=== PATIENT | male | born 1935 | race Asian ===

== ENCOUNTER → 2016-05-13 | Outpatient (CLI) | payer OTHER | LOC: FIMAGING 12:22 | PROVIDERS: ATTEND Physician Assistant Surgical | DX: Z09 Encounter for follow-up examination after completed treatment for conditions other than malignant neoplasm (principal); Z98.1 Arthrodesis status ==

== ENCOUNTER → 2016-06-15 | Day surgery (SDC) | payer OTHER ==
[~2016-06-15] MED LIST: ASPIRIN EC 325 MG TAB PO ONE; ATROPINE SULFATE 1 MG/10 ML SYR ONE; DIAZEPAM 5 MG TAB ONE; DIAZEPAM 5 MG TAB PO ONE; FAMOTIDINE 20 MG TAB ONE; FAMOTIDINE 20 MG TAB PO ONE; IOPAMIDOL (ISOVUE 370) 100 ML BTL IV ONE; LIDOCAINE 1% 30 ML SDV ONE; MIDAZOLAM 2 MG/2 ML VIAL ONE; NS 1,000 ML IV ONE; diphenhydrAMINE 25 MG CAP PO ONE; fentaNYL 100 MCG/2 ML INJ ONE
--- NOTE | 2016-06-15 12:01 | CPEKG ---
Heart Rate: 100 RR Interval: 600 P-R Interval: 156 QRSD Interval: 100 QT Interval: 372 QTC Interval: 480 P [facility]: 69 QRS [facility]: -24 T Wave [facility]: 195 EKG Severity - ABNORMAL ECG - EKG Impression: SINUS TACHYCARDIA EKG Impression: BORDERLINE LEFT AXIS DEVIATION EKG Impression: ABNORMAL T, CONSIDER ISCHEMIA, ANT-LAT LEADS EKG Impression: BORDERLINE PROLONGED QT INTERVAL Electronically Signed By: Jabari Verde 15-Jun-2016 14:27:26
[2016-06-15 12:30] LABS: % IMMATURE GRANULYOCYTES 0.2 % (0.0-1.1); ABSOLUTE IMMATURE GRANULOCYTES 0.01 10^3/uL (0.00-0.10); ADD DIFF? NO; ADD MORPH? NO; ADD SCAN? NO; ATYPICAL LYMPHOCYTE FLAG 10 (0-99); FRAGMENT RBC FLAG 0 (0-99); HEMATOCRIT 41.1 % (40.0-51.0); HEMOGLOBIN 13.4 g/dL (13.7-17.5); LEFT SHIFT FLG 0 (0-99); LIPEMIA HEMOLYSIS FLAG 80 (0-99); MEAN CELL HEMOGLOBIN 30.8 pg (27.9-34.1); MEAN CELL HEMOGLOBIN CONCENTR. 32.6 g/dL (32.4-36.7); MEAN CELL VOLUME 94.5 fL (81.5-99.8); PLATELET CLUMPS FLAG 10 (0-99); PLATELET COUNT 121 10^3/uL (150-400); RED BLOOD CELL COUNT 4.35 10^6/uL (4.40-6.38); RED CELL DISTRIBUTION WIDTH 15.9 % (11.5-15.2)
[2016-06-15 12:39] LABS: INR 1.11 (0.83-1.16); PROTIME(PATIENT) 14.2 SEC (12.0-15.0)
[2016-06-15 12:58] LABS: ANION GAP 12 mEq/L (8-16); CALCIUM 8.8 mg/dL (8.5-10.4); CARBON DIOXIDE 20 mEq/l (22-31); CHLORIDE 105 mEq/L (97-110); CHOLESTEROL 87 mg/dL (140-220); CHOLESTEROL/HDL RATIO 1.32 RATIO (1.00-4.97); GLOMERULAR FILTRATION RATE > 60; GLUCOSE 112 mg/dL (70-100); HIGH DENSITY LIPOPROTEIN 66 mg/dL (40-65); LDL/HDL RATIO 0.06 RATIO (1.00-3.64); LOW DENSITY LIPOPROTEIN 4 mg/dL (80-100); MAGNESIUM 1.9 mg/dL (1.6-2.3); NON-HIGH DENSITY LIPOPROTEIN 21 mg/dL (90-129); POTASSIUM 4.7 mEq/L (3.5-5.2); SODIUM 137 mEq/L (134-144); TRIGLYCERIDE 86 mg/dL (40-150); VERY LOW DENSITY LIPOPROTEINS 17 mg/dL (8-25)
--- NOTE | 2016-06-15 22:36 | CPIP ---
[f rep st] INVASIVE CARDIAC PROCEDURE DATE OF PROCEDURE: 06/15/2016 PROCEDURE: 1. Coronary angiography. 2. Right heart catheterization. INDICATION: 1. New diagnosis of cardiomyopathy with an LVEF of 20%. 2. Class IV congestive heart failure symptoms. ACCESS: Patient was prepped and draped in sterile fashion. 1% lidocaine was used to anesthetize th e right inguinal region. A 6-Samoan introducer sheath was placed selectively into the right common femoral artery via modified Seldinger technique. A 7-Samoan introducer sheath was placed selectivel y into the right common femoral vein via modified Seldinger technique. CORONARY ANGIOGRAPHY: A 6-Samoan JL4 was advanced to left main coronary artery and images obtained. The left main coronary artery bifurcated into an LAD and circumflex coronary arteries. The left m ain coronary artery appeared normal. The left anterior descending coronary artery had a mid-segment al 30% stenosis in the mid-vessel. The left anterior descending coronary artery gave rise to 1 prom inent diagonal branch. The prominent diagonal branch had sequential 50% stenosis in the proximal se gments. The circumflex coronary artery is a moderate-sized vessel. The circumflex coronary artery is nondominant. The circumflex coronary artery appeared normal. A 6-Samoan JR4 was advanced to the right coronary artery and images obtained. The right coronary artery is dominant. The right coron gino artery had a 40-50% stenosis in the ostial segment, as well as a distal 30% stenosis present. LEFT VENTRICULOGRAPHY: Left ventriculography was not performed, given patient had previous echocard iogram and nuclear stress testing demonstrating an ejection fraction of 20%. RIGHT HEART CATHETERIZATION: The right heart catheter was advanced in the right atrium and pressure obtained. The right atrial pressure was 12 mmHg. The catheter was then advanced in the right vent ricle and pressure obtained. The right ventricular pressure was 60/10 mmHg. Catheter was then adva nced in the pulmonary artery position and pressure obtained. The pulmonary artery pressure was 59/3 7 mmHg with a mean pulmonary artery pressure 47 mmHg. The catheter was then advanced in the wedge p osition and pressure obtained. The pulmonary capillary wedge pressure was 25 mmHg. The transpulmon gino gradient was 22 mmHg. Cardiac output 4.22 L/min. Cardiac index 2.38. COMPLICATIONS: None. CONCLUSIONS: 1. Csgt-km-nwsihylw coronary artery disease without flow limitation. 2. Pulmonary hypertension with a mean pulmonary artery pressure of 47 mmHg. The transpulmonary gra dient is 22, indicating a component of left, as well as a primary pulmonary component to pulmonary h ypertension. 3. Elevated pulmonary capillary wedge pressure of 25 mmHg. /[id number]/MODL
== END | disposition home or self-care (01) ==
LOC: FCATH 11:33
PROVIDERS: ATTEND Internal Medicine Cardiovascular Disease
PROC: B2111ZZ Fluoroscopy of Multiple Coronary Arteries using Low Osmolar Contrast (ICD-10-PCS; principal; 2016-06-15)
PROC: B2151ZZ Fluoroscopy of Left Heart using Low Osmolar Contrast (ICD-10-PCS; principal; 2016-06-15)
PROC: 4A023N6 Measurement of Cardiac Sampling and Pressure, Right Heart, Percutaneous Approach (ICD-10-PCS; principal; 2016-06-15)
DX: I25.10 Atherosclerotic heart disease of native coronary artery without angina pectoris (principal); I50.20 Unspecified systolic (congestive) heart failure; E11.9 Type 2 diabetes mellitus without complications; Z96.641 Presence of right artificial hip joint
CPT/HCPCS: C1760; J0461; J1644; J2250; J3010; Q9967

== ENCOUNTER 2016-07-06 15:29 | Inpatient (IN) | payer OTHER ==
[2016-07-06] MEDS ORDERED: traMADol 50 MG TAB PO PRN (16:16)
[2016-07-06] MEDS ORDERED: ONDANSETRON DISINTEGRATING 4 MG TAB PO PRN (16:16)
[2016-07-06] MEDS ORDERED: ONDANSETRON 4 MG/2 ML VIAL IVP PRN (16:16)
[2016-07-06 18:01] LABS: COLOR YELLOW; LEUKOCYTE ESTERASE,URINE NEGATIVE (NEGATIVE); NITRITE,URINE NEGATIVE (NEGATIVE)
[2016-07-06 18:10] LABS: % IMMATURE GRANULYOCYTES 0.7 % (0.0-1.1); ABSOLUTE IMMATURE GRANULOCYTES 0.04 10^3/uL (0.00-0.10); ADD DIFF? NO; ADD MORPH? NO; ADD SCAN? NO; ATYPICAL LYMPHOCYTE FLAG 10 (0-99); FRAGMENT RBC FLAG 0 (0-99); HEMATOCRIT 43.6 % (40.0-51.0); HEMOGLOBIN 13.8 g/dL (13.7-17.5); LEFT SHIFT FLG 0 (0-99); LIPEMIA HEMOLYSIS FLAG 80 (0-99); MEAN CELL HEMOGLOBIN 29.3 pg (27.9-34.1); MEAN CELL HEMOGLOBIN CONCENTR. 31.7 g/dL (32.4-36.7); MEAN CELL VOLUME 92.6 fL (81.5-99.8); MEAN PLATELET VOLUME 9.2 fL (8.7-11.7); PLATELET CLUMPS FLAG 10 (0-99); PLATELET COUNT 129 10^3/uL (150-400); RED BLOOD CELL COUNT 4.71 10^6/uL (4.40-6.38); RED CELL DISTRIBUTION WIDTH 15.1 % (11.5-15.2)
[2016-07-06 18:11] LABS: MUCUS TRACE /lpf (NONE-1+)
[2016-07-06 18:12] LABS: RBC,URINE NONE SEEN /hpf (0-3)
[2016-07-06 18:21] LABS: ALANINE AMINOTRANSFERASE 38 IU/L (21-72); ALKALINE PHOSPHATASE 63 IU/L (38-126); ANION GAP 11 mEq/L (8-16); ASPARTATE AMINOTRANSFERASE 38 IU/L (17-59); CALCIUM 10.3 mg/dL (8.5-10.4); CARBON DIOXIDE 17 mEq/l (22-31); CHLORIDE 106 mEq/L (97-110); CREATININE 1.1 mg/dL (0.7-1.3); GLOMERULAR FILTRATION RATE > 60; GLUCOSE 129 mg/dL (70-100); MAGNESIUM 1.9 mg/dL (1.6-2.3); POTASSIUM 4.3 mEq/L (3.5-5.2); SODIUM 134 mEq/L (134-144); TOTAL PROTEIN 6.5 g/dL (6.3-8.2)
[2016-07-06] MEDS: metFORMIN SR 750 MG TAB.SR PO SCH (19:42)
[2016-07-06] MEDS: TRAVOPROST Z 0.004% 2.5 ML OPHT.BTL EACHEYE SCH (19:43)
[2016-07-06] MEDS: FUROSEMIDE 100 MG in D5W 100 ML IV SCH (19:44)
[2016-07-06] MEDS ORDERED: SODIUM CL NASAL 45 ML BTL EACHNARE PRN (20:44)
[2016-07-06] MEDS ORDERED: Diclofenac Sodium [Voltaren Gel (*)] 1 APP) TP PRN (20:56)
[2016-07-06] MEDS ORDERED: QUININE SULFATE 300 MG PO SCH (21:00)
[2016-07-06] MEDS: ASCORBIC ACID 500 MG TAB PO SCH (21:34)
[2016-07-06] MEDS: CARVEDILOL 6.25 MG TAB PO SCH (21:34)
[2016-07-06] MEDS: OMEGA-3 FATTY ACIDS 1,000 MG CAP PO SCH (21:34)
[2016-07-06] MEDS: LORazepam 0.5 MG TAB PO SCH (21:35)
[2016-07-06] MEDS: HYDROCODONE/APAP 5/325 TAB PO PRN (21:35)
[2016-07-06] MEDS: NIACIN 500 MG TAB PO SCH (21:36)
[2016-07-06] MEDS: ALBUTEROL 60 PUFFS/8 GM MDI IH PRN (21:37)
[2016-07-07] MEDS: FUROSEMIDE 100 MG in D5W 100 ML IV SCH ×3 (03:46→23:48)
[2016-07-07] MEDS: HYDROCODONE/APAP 5/325 TAB PO PRN ×2 (03:50→21:12)
[2016-07-07 04:29] LABS: CALCIUM 9.6 mg/dL (8.5-10.4); CARBON DIOXIDE 20 mEq/l (22-31); CHLORIDE 105 mEq/L (97-110); CREATININE 1.2 mg/dL (0.7-1.3); GLOMERULAR FILTRATION RATE 58; GLUCOSE 94 mg/dL (70-100); SODIUM 137 mEq/L (134-144)
[2016-07-07 04:33] LABS: ANION GAP 12 mEq/L (8-16); POTASSIUM 4.5 mEq/L (3.5-5.2)
[2016-07-07] MEDS ORDERED: NON-FORMULARY NEW DRUG (Simvastatin [Zocor] 40 MG) PO SCH (09:00)
--- NOTE | 2016-07-07 09:42 | SOAPPROG ---
SOAP Progress Note Assessment/Plan: Assessment: 81 yo male admitted by cardiology, we are following along per request w/ Bonnie yesterday, pt well known to Clay Fritz w/ multiple med problems including cad , DM, htn, pud /w h/o gib, hypoxemia who was in cardiology clinic yesterday and decision made to admit him for more aggressive care of his CHF. He has unfortunately had a bad fall sustaining rib fractures (was getting mail and slipped on ice over a month ago), w/ h/o T10 and T12 fx as well from a fall prior to that months ago, who has had continuing sob and pleural effusions since his rib fractures and failed outpt treatment w/ lasix and symptomatic care. -CHF - per cardiology, getting iv diuresis, usual meds include arb. Will defer to cardiology. Hopefully he will turn around quickly and get some relief. -DM - on metformin -cad - s/p recent stress test, is on simvastatin, colestipol, niacin. -PUD/h/o GIB - cont on ppi. -pain (lumbago from vertebral fx, and rib pain from recent fractures) - gabapentin, norco, tramadol have been helping as outpt. Will make sure he has options on med list here for discomfort as needed. -hypoxia, copd - inhalers, oxygen Plan: 07/07/16 09:33 Subjective: Doing ok, hopes to get better rapidly, has company coming into town next week Objective: Vital Signs Temp Pulse Resp BP Pulse Ox 36.5 C 93 24 H 102/72 97 07/07/16 08:00 07/07/16 08:00 07/07/16 08:00 07/07/16 08:00 07/07/16 08:00 Laboratory Results 07/06/16 17:30 07/07/16 03:28 07/06/16 07/07/16 07/08/16 05:59 05:59 05:59 Intake Total 400 Output Total 960 270 Balance -560 -270 GEN: pleasant male, A&O HEENT: wearing oxygen by nasal cannula Chest: some coarse bs and decreased bs at bases CV: rrr ABd: soft nt nd Ext: L heel w/ dressing intact - wound care to see today ICD10 Worksheet Patient Problems: Problems Problem Status Onset Primary localized osteoarthritis of right hip Acute Fusion of lumbar spine Acute
[2016-07-07] MEDS: CARVEDILOL 6.25 MG TAB PO SCH ×2 (09:49→17:09)
[2016-07-07] MEDS: OMEGA-3 FATTY ACIDS 1,000 MG CAP PO SCH ×2 (09:49→21:12)
[2016-07-07] MEDS: ASPIRIN 81 MG CHEWABLE TAB PO SCH (09:49)
[2016-07-07] MEDS: ENOXAPARIN 40 MG/0.4 ML SYR SC SCH (09:49)
[2016-07-07] MEDS: ATORVASTATIN CALCIUM 20 MG TAB PO SCH (09:52)
[2016-07-07] MEDS: SPIRONOLACTONE 25 MG TAB PO SCH (09:53)
[2016-07-07] MEDS: LIDOCAINE 5% 1 EA PATCH TD SCH ×2 (09:53→21:17)
[2016-07-07] MEDS: LOSARTAN POTASSIUM 25 MG TAB PO SCH (09:53)
[2016-07-07] MEDS: ASCORBIC ACID 500 MG TAB PO SCH ×2 (09:53→21:12)
[2016-07-07] MEDS: FINASTERIDE 5 MG TAB PO SCH (09:54)
--- NOTE | 2016-07-07 12:15 | PDCARPN ---
Cardiology Progress Note Chief Complaint: Systolic CHF Assessment/Plan: Assessment: Systolic CHF---- Admitted from the office yesterday due to CHF exacerbation. At home he was SOB requiring oxygen, and he could not walk from room to room w/ out extreme SOB. He was started on a Lasix drip 100/hr in Dex. He has tolerated it well. Output balance -560. Admit BNP was 16,100 and weight 58.7 admit and 57.8 this AM. GFR on admit >60, and today 58. His abdomen is full, and legs no edema. He is on Aldactone. He denies SOB today. He has been up in the room. Telemetry show RSR with rate in 90's. Continue with low Sodium diet. His food choices have indicated he desires high sodium. Dietary reminds him he can not have foods if he calls for high sodium foods, which is frustrating him. He will benefit from dietary education on Low Sodium diet. Will plan to continue IV Lasix today and likely consider switching to oral tomorrow. NICM with EF of 20%. DM managed on Metformin. CAD--Recent stress test. On BB, ARB, Statin. No anginal symptoms. COPD, hypoxia in office, now on oxygen. Plan:Continue IV Lasix. Consider switch to oral tomorrow. Dr Dimas will round on him in AM. 07/07/16 12:18 Reviewed/Discussed With: multidisciplinary team Objective: Vital Signs (8 Hrs) Temp Pulse Resp BP Pulse Ox 07/07/16 08:00 36.5 C 93 24 H 102/72 97 Intake/Output (24 Hrs) 07/06/16 07/07/16 07/08/16 05:59 05:59 05:59 Intake Total 400 Output Total 960 270 Balance -560 -270 Intake: Oral (ml) 400 Output: Urine (ml) 960 270 Urinal 960 270 Other: Weight 57.8 kg Number of Voids Toilet 2 Urinal 1 Number of Stools Toilet 1 Result Diagrams: 07/06/16 17:30 07/07/16 03:28 - Physical Exam Constitutional: no apparent distress Cardiovascular: regular rate and rhythm, no murmurs, no rubs, no gallops Peripheral Pulses: 1+: dorsalis-pedis (R), dorsalis-pedis (L) Respiratory: no crackles, no wheezes, No expiratory wheeze Skin: warm, other (No lower ext edema. Abdomen fullness present.) Neurologic: AAOx3 Psychiatric: cooperative, interactive ICD10 Worksheet Patient Problems: Problems Problem Status Onset Fusion of lumbar spine Acute Primary localized osteoarthritis of right hip Acute
[2016-07-07] MEDS: PANTOPRAZOLE SODIUM 40 MG TAB PO SCH (14:09)
--- NOTE | 2016-07-07 15:03 | WOCRNPDOC ---
WOCRN Advanced Assessment Note - Skin Integrity Problem, Advanced Assess Bilateral Heel Dressing Type: Allevyn Life Dressing Description: Clean/Dry, Intact Exudate Amount: Scant Exudate Color: Reddish/Yellow Exudate Characteristic(s): Serosanguinous Integumentary Issue Intervention: Visualized Under Dressing Zbigniew Wound Tissue: Blanching, Erythema, Raw Zbigniew Wound Swelling: Mild Wound Bed Color: Red, Yellow Wound Bed Constitution: Smooth Tissue, Adhered Slough Site Measurement - Head-to-Toe Length X Width X Depth (cm): L heel: 0.2cmx0.5cmxslough. R heel: #1: 0.1cmx0.6cmx0.1cm. #2: 0.2cmx0.4cmx0.1cm Pulse Location & Description: +2 DP bilaterally Extremity Temperature: Warm Skin Integrity Problem Comment: Linear, abrasion-like wounds noted on posteior aspect (achilles) of patient's heels. On the left, the abrasion is small, but slough-filled. On the R, both abrasions are shallow w/ smooth tissues noted in wound bed. There is mild zbigniew-wound erythema on both heels, and patient c/o pain when site is palpated. He also reports pain at night when he is in bed. While he does have 2+ DP pulses and warm feet, there could be a mild arterial component to this pain. In addition, the abrasions are consistent in location with where the backs of his shoes come into contact with the wounds. I recommended that he stops wearing these shoes for a week or so to determine if they are contributing to the wounds. In addition, he should continue to keep both heels covered, and float them when in bed. rn first assistAMERICA Fernandez present and assisting.
[2016-07-07] MEDS: metFORMIN SR 750 MG TAB.SR PO SCH (17:09)
[2016-07-07] MEDS: ALBUTEROL 60 PUFFS/8 GM MDI IH PRN (17:12)
[2016-07-07] MEDS: LORazepam 0.5 MG TAB PO SCH (21:12)
[2016-07-07] MEDS: NIACIN 500 MG TAB PO SCH (21:13)
[2016-07-07] MEDS: TRAVOPROST Z 0.004% 2.5 ML OPHT.BTL EACHEYE SCH (21:13)
[2016-07-07] MEDS: QUININE SULFATE 300 MG PO SCH (21:21)
[2016-07-08 08:39] LABS: ANION GAP 10 mEq/L (8-16); CALCIUM 8.3 mg/dL (8.5-10.4); CARBON DIOXIDE 25 mEq/l (22-31); CHLORIDE 100 mEq/L (97-110); CREATININE 1.6 mg/dL (0.7-1.3); GLOMERULAR FILTRATION RATE 42; GLUCOSE 131 mg/dL (70-100); SODIUM 135 mEq/L (134-144)
[2016-07-08] MEDS ORDERED: VITAMIN B COMPLEX 1 EA CAP/TAB PO SCH (09:00)
--- NOTE | 2016-07-08 09:08 | SOAPPROG ---
SOAP Progress Note Assessment/Plan: Assessment: Plan: 07/08/16 09:07 COPD--add DUOnebs, prior smoker CHF as per cards, creatinine increasing weight loss, nausea--check Abd US DM--stable--not really an issue with weight loss, will d/c metformin Subjective: Patient frustrated with limitations in breathing and energy. Appetite thwarted by nausea. Two falls have resulted in multiple rib fractures and spinal compression fractures over the last 10 months. Pain improved at this point except for left lower lateral rib pain last night. Urinary output increased, but not extreme. Objective: Vital Signs Temp Pulse Resp BP Pulse Ox 36.7 C 89 18 103/64 99 07/08/16 07:45 07/08/16 07:45 07/08/16 07:45 07/08/16 07:45 07/08/16 07:45 Laboratory Results 07/06/16 17:30 07/08/16 08:11 07/07/16 07/08/16 07/09/16 05:59 05:59 05:59 Intake Total 519 950 Output Total 960 1420 400 Balance -441 -470 -400 Gen: NAD, pleasant Lungs" moderately diminished breath sounds posteriorly Heart: RRR tele sinus Abd + bs soft, moderate weight loss over past year LE's no edema Cr increasing with iv lasix ICD10 Worksheet Patient Problems: Problems Problem Status Onset Fusion of lumbar spine Acute Primary localized osteoarthritis of right hip Acute
[2016-07-08] MEDS: FUROSEMIDE 100 MG in D5W 100 ML IV SCH (10:00)
[2016-07-08] MEDS: ASCORBIC ACID 500 MG TAB PO SCH ×2 (10:11→21:39)
[2016-07-08] MEDS: ATORVASTATIN CALCIUM 20 MG TAB PO SCH (10:11)
[2016-07-08] MEDS: PANTOPRAZOLE SODIUM 40 MG TAB PO SCH (10:12)
[2016-07-08] MEDS: VITAMIN B COMPLEX 1 EA CAP/TAB PO SCH (10:12)
[2016-07-08] MEDS: OMEGA-3 FATTY ACIDS 1,000 MG CAP PO SCH ×2 (10:12→21:39)
[2016-07-08] MEDS: FINASTERIDE 5 MG TAB PO SCH (10:12)
[2016-07-08] MEDS: ASPIRIN 81 MG CHEWABLE TAB PO SCH (10:12)
[2016-07-08] MEDS: CARVEDILOL 6.25 MG TAB PO SCH ×2 (10:13→18:47)
[2016-07-08] MEDS: LOSARTAN POTASSIUM 25 MG TAB PO SCH (10:14)
[2016-07-08] MEDS: SPIRONOLACTONE 25 MG TAB PO SCH (10:14)
[2016-07-08] MEDS: ENOXAPARIN 40 MG/0.4 ML SYR SC SCH (10:15)
[2016-07-08] MEDS: IPRATROPIUM/ALBUTEROL 3 ML DEYVIAL IH SCH ×2 (11:14→17:21)
[2016-07-08] MEDS: LIDOCAINE 5% 1 EA PATCH TD SCH (12:17)
--- NOTE | 2016-07-08 12:47 | SOAPPROG ---
LALY Progress Note Assessment/Plan: Assessment: 81 y/o man with chronic non-ischemic systolic CHF with LVEF 20%, longstanding DM and moderate non-obstructive CAD by cath last month. Echo 06/12 showed LVEF 20 % with LVEDD 6.2cm suggesting some chronicity to it and mild AI/MR and trivial TR. L/R cardiac cath 06/15/16 showed moderate 40-50% CAD. RHC: RA 12, PCWP 25 and CI 2.4 l/min. He has diuresed about 20lbs over last month. Clinically I think he is euvolemic to slightly hypovolemic now. I wonder if his chronic nausea could have a component of diabetic gastroparesis. He still is in denial how sick he is and frustrated can't host family reunion without fatigue. REC: 1)stop Lasix gtt. 2)decrease Aldactone to 12.5mg PO qam with his CRI. 3)probably restart lasix 40mg PO qday in 1-3 days. 4)maybe from a CHF standpoint could go home tommoow or Wednesday. 5)if continues to decline, possibly repeat RHC with RV bx to evaluate for amyloidosis soon. 6)more CHF education and teaching done today by me. 07/08/16 12:42 Subjective: c/o fatigue, shortness of breath at rest because can't breath thru nares, and chronic nausea and no appetite. Denies CP, PND or near syncope. Ambulated in hallway 150ft without TABARES. Objective: Vital Signs Temp Pulse Resp BP Pulse Ox 36.6 C 99 20 93/62 L 98 07/08/16 11:44 07/08/16 11:44 07/08/16 11:44 07/08/16 11:44 07/08/16 11:44 Laboratory Results 07/06/16 17:30 07/08/16 08:11 07/07/16 07/08/16 07/09/16 05:59 05:59 05:59 Intake Total 519 950 120 Output Total 960 1420 600 Balance -981 -384 -871 Physical Exam - Physical Exam General Appearance: alert EENT: PERRL/EOMI Neck: non-tender Respiratory: lungs clear Cardiac/Chest: regular rate, rhythm, gallop, systolic murmur, No JVD Peripheral Pulses: 1+: femoral (R), femoral (L), dorsalis-pedis (R), dorsalis- pedis (L), 2+: carotid (R), carotid (L) Abdomen: non-tender, No guarding Skin: warm/dry Extremities: pedal edema (trace bilateral pretibial edema.) Neuro/Psych: alert ICD10 Worksheet Patient Problems: Problems Problem Status Onset Fusion of lumbar spine Acute Primary localized osteoarthritis of right hip Acute
[2016-07-08] MEDS: LORazepam 0.5 MG TAB PO SCH (21:39)
[2016-07-08] MEDS: TRAVOPROST Z 0.004% 2.5 ML OPHT.BTL EACHEYE SCH (21:40)
[2016-07-08] MEDS: QUININE SULFATE 300 MG PO SCH (21:43)
[2016-07-09] MEDS: IPRATROPIUM/ALBUTEROL 3 ML DEYVIAL IH SCH ×3 (00:51→11:51)
[2016-07-09 04:29] LABS: % IMMATURE GRANULYOCYTES 0.4 % (0.0-1.1); ABSOLUTE IMMATURE GRANULOCYTES 0.02 10^3/uL (0.00-0.10); ADD DIFF? NO; ADD MORPH? NO; ADD SCAN? NO; ATYPICAL LYMPHOCYTE FLAG 10 (0-99); FRAGMENT RBC FLAG 0 (0-99); HEMOGLOBIN 12.4 g/dL (13.7-17.5); LEFT SHIFT FLG 0 (0-99); LIPEMIA HEMOLYSIS FLAG 80 (0-99); MEAN CELL HEMOGLOBIN CONCENTR. 31.8 g/dL (32.4-36.7); MEAN CELL VOLUME 94.2 fL (81.5-99.8); MEAN PLATELET VOLUME 9.3 fL (8.7-11.7); PLATELET CLUMPS FLAG 10 (0-99); PLATELET COUNT 95 10^3/uL (150-400); RED BLOOD CELL COUNT 4.14 10^6/uL (4.40-6.38); RED CELL DISTRIBUTION WIDTH 15.1 % (11.5-15.2)
[2016-07-09 04:39] LABS: ALBUMIN 3.3 g/dL (3.5-5.0)
[2016-07-09 04:41] LABS: ALANINE AMINOTRANSFERASE 40 IU/L (21-72); ALKALINE PHOSPHATASE 48 IU/L (38-126); AMYLASE 156 IU/L (30-110); ANION GAP 5 mEq/L (8-16); ASPARTATE AMINOTRANSFERASE 26 IU/L (17-59); BILIRUBIN,TOTAL 0.7 mg/dL (0.1-1.4); CALCIUM 8.1 mg/dL (8.5-10.4); CARBON DIOXIDE 26 mEq/l (22-31); CHLORIDE 103 mEq/L (97-110); CREATININE 1.3 mg/dL (0.7-1.3); GLOMERULAR FILTRATION RATE 53; GLUCOSE 122 mg/dL (70-100); POTASSIUM 3.3 mEq/L (3.5-5.2); SODIUM 134 mEq/L (134-144); TOTAL PROTEIN 5.6 g/dL (6.3-8.2)
[2016-07-09] MEDS ORDERED: SPIRONOLACTONE 25 MG TAB PO SCH (09:00)
--- NOTE | 2016-07-09 09:14 | SOAPPROG ---
SOAP Progress Note Assessment/Plan: Assessment: Plan: 07/08/16 09:07 COPD--add DUOnebs, prior smoker CHF as per cards, creatinine increasing weight loss, nausea--check Abd US DM--stable--not really an issue with weight loss, will d/c metformin 07/09/16 09:12 CHF--continue meds, CP rehab COPD--nebs seem to have helped, Juany will be contacted through our office today nausea/wt loss--US negative, pancreatic enzymes slightly elevated, hold metformin and niacin and see if symptoms improve DM--stable, improved with weight loss TSH--mildly suppressed, follow, potential addition of methimazole in the future osteoporosis--planning on Prolia Subjective: He is processing his current challenges with some polite frustration. Shortness of breath still feels limiting. Nebs seem to have helped. He has eaten ivorian toast for breakfast the past two days with better appetite. Objective: Vital Signs Temp Pulse Resp BP Pulse Ox 36.6 C 80 16 104/65 96 07/09/16 04:00 07/09/16 05:57 07/09/16 05:57 07/09/16 04:00 07/09/16 05:57 Laboratory Results 07/09/16 03:56 07/09/16 03:56 07/08/16 07/09/16 07/10/16 05:59 05:59 05:59 Intake Total 950 640 Output Total 1420 1500 Balance -470 -860 Gen: NAD, appears brighter and moves about the room a bit quicker and with more ease Lungs: diminished BS, posterior crackles--mild Heart: RRR Abd + bs soft LE's no edema Labs TSH mildly suppressed K+ 3.3 Cr improved Lipase up a bit Abd US essentially nl x small renal cyst ICD10 Worksheet Patient Problems: Problems Problem Status Onset Fusion of lumbar spine Acute Primary localized osteoarthritis of right hip Acute
[2016-07-09 09:58] LABS: HEMOGLOBIN A1C 6.6 % (4.0-6.0)
[2016-07-09] MEDS: ASCORBIC ACID 500 MG TAB PO SCH (10:05)
[2016-07-09] MEDS: ASPIRIN 81 MG CHEWABLE TAB PO SCH (10:05)
[2016-07-09] MEDS: ATORVASTATIN CALCIUM 20 MG TAB PO SCH (10:05)
[2016-07-09] MEDS: PANTOPRAZOLE SODIUM 40 MG TAB PO SCH (10:05)
[2016-07-09] MEDS: LOSARTAN POTASSIUM 25 MG TAB PO SCH (10:05)
[2016-07-09] MEDS: OMEGA-3 FATTY ACIDS 1,000 MG CAP PO SCH (10:05)
[2016-07-09] MEDS: VITAMIN B COMPLEX 1 EA CAP/TAB PO SCH (10:05)
[2016-07-09] MEDS: CARVEDILOL 6.25 MG TAB PO SCH (10:06)
[2016-07-09] MEDS: FINASTERIDE 5 MG TAB PO SCH (10:07)
[2016-07-09] MEDS: ENOXAPARIN 40 MG/0.4 ML SYR SC SCH (10:10)
[2016-07-09] MEDS: LIDOCAINE 5% 1 EA PATCH TD SCH (10:10)
--- NOTE | 2016-07-09 10:33 | GDS ---
[f rep st] DISCHARGE SUMMARY DISCHARGE DIAGNOSES: 1. Ktxmr-zc-hxsmmoe systolic congestive heart failure with class 4 symptoms on admission. 2. Vxpm-bq-qklhrvzj nonobstructive coronary artery disease on left heart catheterization on 06/17/2016. 3. Mild pulmonary hypertension. 4. Chronic pain. 5. Non-insulin dependent diabetes mellitus. 6. Hypoxic respiratory failure on O2 therapy. 7. Nocturnal hypoxia. PROCEDURES DURING THIS ADMISSION: 1. On 07/06/2016: Chest x-ray which showed cardiomegaly with peribronchial cuffing and tiny right pleural effusion, consistent with mild CHF. 2. On 07/08/2016: Abdominal ultrasound which shows no acute findings. CONSULTATIONS: Clay Fritz. BRIEF HISTORY: Please see dictated office note that acts as H and P. In brief, the patient is a 81-year-old male who was recently diagnosed with nonischemic cardiomyopathy with a systolic ejection fraction of 20%, non- insulin dependent diabetes mellitus, ymzy-sd-hkxhfduc nonobstructive coronary artery disease. He had a nuclear stress test in our office which showed an LVEF of 20%. Followup echo was confirmatory of this. He saw Dr. Dimas for heart failure concentration and has been started on IV diuresis. Additionally, he has been on daytime oxygen when previously he was only wearing it at nighttime. He presented to our office on July 06 reporting that he has anorexia due to nausea and was having a very difficult time taking in any breaths. His lung sounds were quite abnormal and so he was admitted for IV diuresis. HOSPITAL COURSE BY PROBLEM: 1. Acute on chronic systolic CHF. He was put on a Lasix GTT, but developed acute kidney injury. He will be placed on his home Lasix tomorrow and we will plan to follow his labs closely. 2. Acute kidney injury. He is back down to near his baseline. We will plan for a BMP with Clay Fritz's office for next week. 3. Type 2 diabetes mellitus. This is being managed by his PCP's office. His metformin was held in this hospitalization with the thought that this may be contributing to his nausea and anorexia. 4. Hypoxia. He has responded well to nebulizer treatments. We will discharge him to home with ongoing treatments for this. PHYSICAL EXAM: VITAL SIGNS: On day of discharge, blood pressure 103/61, heart rate 102, respirations 90, O2 saturation 98%. Temperature of 97.7 degrees. GENERAL: He is a very pleasant male in no apparent distress. HEENT: Eyes are HILARIA. Mucous membranes moist. HEART: Regular rate and rhythm. LUNGS: With crackles and wheezes auscultated. ABDOMEN: Soft. : With no Espitia present. SKIN: Warm and dry without any significant edema. LABORATORY DATA: CBC with WBC 4.79, hemoglobin 12.4, hematocrit 39, platelet count of 95. Chemistries with sodium 134, potassium 3.3, chloride 103, CO2 of 26, BUN 47, creatinine 1.3. Glucose 122. NT proBNP at 8150, down from 16,000 on admission. TSH 0.209. RESULTS PENDING: None. DIET: We once again reviewed a low-salt diet for heart failure management. DISCHARGE MEDICATIONS: Please see med reconciliation for complete details. MEDICATIONS: Medications that are being held are his niacin and his metformin. He may resume his Voltaren gel, Lidoderm patch, Ativan, vitamin B complex, Travatan, simvastatin, quinine, omega fatty acids, losartan, [place], finasteride , Colestid, vitamin D3, aspirin, vitamin C, Ultram, furosemide 40 mg p.o. daily , saline nasal spray, and albuterol. His new medications are an increase in his carvedilol dose to 6.25 b.i.d. and a decrease in his spironolactone to 12.5 p.o. daily. He is having an nebulizer treatments ordered through [facility] by Clay Fritz. FOLLOWUP INSTRUCTIONS: 1. Follow up labs in Clay Fritz's office next week. 2. Increase dietary potassium. 3. Follow up with Dr. Dimas in 2 weeks' time. Please note that greater than 30 minutes was spent on discharge and coordination of care. /[id number]/MODL MTDD
[2016-07-09] MEDS: HYDROCODONE/APAP 5/325 TAB PO PRN (10:42)
[2016-07-09 12:13] VITALS: BP 102/67; PULSE 92; RESP 16; TEMP 98; O2SAT 96
== END 2016-07-09 13:25 | disposition home or self-care (01) | DRG 291 ==
LOC: OBSVTOIN 16:49 → F2W 16:49
PROVIDERS: ADMIT Internal Medicine Cardiovascular Disease; ATTEND Internal Medicine Cardiovascular Disease
DX: I50.23 Acute on chronic systolic (congestive) heart failure (principal); J96.91 Respiratory failure, unspecified with hypoxia; N17.9 Acute kidney failure, unspecified; E11.9 Type 2 diabetes mellitus without complications; J44.9 Chronic obstructive pulmonary disease, unspecified; I42.9 Cardiomyopathy, unspecified; I25.10 Atherosclerotic heart disease of native coronary artery without angina pectoris; E78.5 Hyperlipidemia, unspecified; I27.2 Other secondary pulmonary hypertension; G89.29 Other chronic pain; Z87.442 Personal history of urinary calculi; Z87.11 Personal history of peptic ulcer disease; Z96.649 Presence of unspecified artificial hip joint; Z96.659 Presence of unspecified artificial knee joint; Z87.891 Personal history of nicotine dependence
CPT/HCPCS: 97161-GP; 97165-GO; G8978-GP-CI; G8979-GP-CI; G8980-GP-CI; G8987-GO-CI; G8988-GO-CI; G8989-GO-CI; J1650

== ENCOUNTER → 2017-02-28 | Outpatient (CLI) | payer OTHER | LOC: FIMAGING 14:21 | PROVIDERS: ATTEND Physician Assistant | DX: E80.7 Disorder of bilirubin metabolism, unspecified (principal); N28.1 Cyst of kidney, acquired; Z98.1 Arthrodesis status ==

== ENCOUNTER 2018-06-29 15:46 | Inpatient (IN) | payer OTHER ==
--- NOTE | 2018-06-29 15:55 | EDPHY ---
H & P Time Seen by Provider: 06/29/18 15:54 - Personal History Tetanus Vaccine Date: <10 YRS - Medical/Surgical History Hx Asthma: No Hx Chronic Respiratory Disease: No Hx Diabetes: Yes Hx Cardiac Disease: No Hx Renal Disease: No Hx Cirrhosis: No Hx Alcoholism: No Hx HIV/AIDS: No Hx Splenectomy or Spleen Trauma: No Other PMH: diabetes type 2, previous back surgery, htn, - Social History Smoking Status: Former smoker Constitutional: Initial Vital Signs Temperature (C) 37.1 C 06/29/18 15:51 Heart Rate 130 H 06/29/18 15:51 Respiratory Rate 16 06/29/18 15:51 Blood Pressure 120/69 06/29/18 15:51 O2 Sat (%) 98 06/29/18 15:51 O2 Delivery Mode Nasal Cannula O2 (L/minute) 2 Allergies/Adverse Reactions: No Known Allergies Allergy (Verified 11/27/15 10:56) Home Medications: Medication Instructions Recorded Ascorbic Acid [Vitamin C 500 mg 500 mg PO BID 11/27/15 (*)] Cholecalciferol Vit D3 [Vitamin D3 2,000 units PO TID 11/27/15 2000 units tab (OTC)] Colestipol HCl [Colestid (*)] 1 gm PO QID 11/27/15 Diclofenac Sodium 1% [Voltaren Gel 1 akua TP DAILY PRN 11/27/15 (*)] Finasteride [Proscar 5 MG (*)] 5 mg PO EVERY OTHER DAY 11/27/15 Herbals/Supplements -Info Only 1 ea PO DAILY 11/27/15 Hydrocodone/Acetaminophen [[place] 1 each PO QID PRN 11/27/15 5/325 (*)] [place]-3 Fatty Acids [Fish Oil 1000 1,000 mg PO BID 11/27/15 mg (*)] Quinine Sulfate 300mg 1 each PO HS 11/27/15 Simvastatin [Zocor] 40 mg PO DAILY 11/27/15 Travoprost Z 0.004% [Travatan Z 1 drops EACHEYE DAILY 11/27/15 0.004% (*)] Aspirin [Aspirin 81mg (*)] 81 mg PO DAILY 06/15/16 Losartan Potassium [Cozaar 25 mg 25 mg PO DAILY 06/15/16 (*)] Vitamin B Complex [B Complex] 1 each PO DAILY 06/15/16 Furosemide [Lasix 40 MG (*)] 40 mg PO DAILY 07/06/16 LORazepam [Ativan (*)] 0.5 mg PO HS 07/06/16 Lidocaine 5% [Lidoderm 5% Patch] 1 ea TD DAILY 07/06/16 Albuterol [Proventil Inhaler HFA 1 puffs IH Q6 PRN #0 mdi 07/09/16 (*)] Carvedilol [Coreg (*)] 6.25 mg PO BIDMEAL #60 tab 07/09/16 Sodium Cl Nasal [[place] (*)] 1 spray [place] PRN PRN #0 btl 07/09/16 Spironolactone [Aldactone 25 MG 12.5 mg PO DAILY #0 tab 07/09/16 (*)] traMADol [Ultram 50 mg (*)] 50 mg PO Q6HRS PRN #0 tab 07/09/16 Medical Decision Making - Diagnostics Imaging: Discussed imaging studies w/ on call Radiologist, I viewed and interpreted images myself ED Course/Re-evaluation: CHIEF COMPLAINT: Black tarry stool, weakness HISTORY OF PRESENT ILLNESS: The patient is an 83 y/o male with a history of CHF (on 2-3L supplemental O2), diabetes and hypertension complaining of weakness, lethargy, and black tarry stool onset 3 days ago. The patient first noticed the black tarry stools 3 days ago; he denies any diarrhea. He was supposed to see his PCP today, but was too weak to get out of bed. Due to this weakness he called EMS. No fever, headache, body aches, lightheadedness, chest pain, heart palpitations, shortness of breath , cough, vomiting, urinary complaints, numbness, paresthesias. His states that the patient does not drink alcohol. The patient is not anticoagulated and is supposed to take a baby aspirin daily. However, he is noncompliant with most of his medications. The patient is a poor historian. REVIEW OF SYSTEMS: A comprehensive 10 system review of systems is otherwise negative aside from elements mentioned in the history of present illness and medical decision making. PHYSICAL EXAM: HR, BP, O2 Sat, RR. Temp noted General Appearance: Alert, well hydrated, appropriate, and non-toxic appearing. Head: Atraumatic without scalp tenderness or obvious injury Eyes: Pupils equal, round, reactive to light and accommodation, EOMI, no trauma , no injection. Ears: Clear bilaterally, no perforation, normal landmarks Nose: Atraumatic, no rhinorrhea, clear. Throat: There is no erythema or exudates, no lesions, normal tonsils, mucus membranes moist. Neck: Supple, 2+ carotid upstroke, nontender, no lymphadenopathy. Respiratory: No retractions, no distress, no wheezes, and no accessory muscle use. Lungs are clear to auscultation bilaterally. Cardiovascular: Tachycardic, no murmurs, rubs, or gallops. Bilateral carotid, radial, dorsalis pedis, and posterior tibial pulses intact. Good capillary refill all extremities. Gastrointestinal: Diffuse abdominal tenderness to palpation primarily in the epigastric region. Abdomen is soft, non-distended, no masses, no rebound, no guarding, no peritoneal signs. Musculoskeletal: Normal active ROM of all extremities, atraumatic. Neurological: Alert, appropriate, and interactive. The patient has normal DTRs and non-focal cranial nerves, motor, sensory, and cerebellar exam. Skin: No rashes, good turgor, no nodules on palpation. Past medical history: Diabetes type 2, hypertension, CHF (on 2-3L O2) Past surgical history: Back surgery Family history: Social history: Lives in [place], retired, at bedside DIAGNOSTICS/PROCEDURES/CRITICAL CARE TIME: Abdominopelvic CT: No acute findings EKG: The 12 lead EKG was interpreted by myself as sinus tachycardia with a rate of 128. See hard copy and/or "tracemaster" electronic copy for interpretation. DIFFERENTIAL DIAGNOSIS: The differential diagnosis for the patient's upper GI bleeding included but was not limited to ulcer disease, gastritis, Jennifer-Yi tear, and esophageal varices. MEDICAL DECISION MAKING: The patient is an 83 y/o male with a history of CHF (on 2-3L supplemental O2), diabetes and hypertension presenting with of weakness, lethargy, and black tarry stool onset 3 days ago. On exam he has diffuse abdominal tenderness to palpation primarily in the epigastric region and is tachycardic. Patient most likely has an upper GI bleed and will need to be admitted. Labs, EKG, and abdominopelvic CT ordered; 0.5 mg IV Dilaudid, 4mg IV Zofran, 80mg IV Protonix and 1L IV NS administered. Patient will also be type and screened. I will page the hospitalist and GI. 1556: I interpreted patient's EKG as sinus tachycardia with a rate of 128. 1600: Patient's BUN is 116. His hemoglobin and hematocrit are also low. Patient' s lipase is also mildly elevated. 1619: I consulted with Dr. Foster, hospitalist, regarding this patient. He accepts admission of this patient. 1630: I consulted with Dr. Tavarez, multimedia journalist, regarding this patient. He will consult on this patient during his admission. 1720: I spoke with Dr. Garcia, radiologist, regarding patient's CT. There are no acute findings. Patient is safe to be transferred to the floor. GI will perform an upper endoscopy on him. - Data Points Laboratory Results: Laboratory Results 06/29/18 15:56 06/29/18 15:56 06/29/18 06/29/18 06/29/18 16:03 16:00 15:56 WBC RBC Hgb POC Hgb 7.5 gm/dL L gm/dL (13.7-17.5) Hct POC Hct 22 % L % (40-51) MCV MCH MCHC RDW Plt Count MPV Neut % (Auto) Lymph % (Auto) [place] % (Auto) Eos % (Auto) Baso % (Auto) Nucleat RBC Rel Count Absolute Neuts (auto) Absolute Lymphs (auto) Absolute Monos (auto) Absolute Eos (auto) Absolute Basos (auto) Absolute Nucleated RBC Immature Gran % Seg Neutrophils % Band Neutrophils % Lymphocytes % Monocytes % Eosinophils % Basophils % Metamyelocytes % Myelocytes % Promyelocytes % Blast Cells % Immature Gran # Absolute Seg Neuts Absolute Band Neuts Absolute Lymphocytes Absolute Monocytes Absolute Eosinophils Absolute Basophils Absolute Metamyelocyte Absolute Myelocytes Absolute Promyelocytes Absolute Plasma Cells Nucleated RBCs Absolute Blast Cells Plasma Cells % Platelet Estimate Polychromasia PT 13.9 SEC SEC (12.0-15.0) INR 1.11 (0.83-1.16) APTT 23.9 SEC SEC (23.0-38.0) POC Sodium 138 mEq/L mEq/L (135-145) Sodium POC Potassium 4.9 mEq/L mEq/L (3.3-5.0) Potassium POC Chloride 107 mEq/L mEq/L (97-110) Chloride Carbon Dioxide POC Total CO2 20 mEq/L L mEq/L (22-31) Anion Gap POC BUN 116 mg/dL H* mg/dL (7-23) BUN Creatinine POC Creatinine 1.4 mg/dL H mg/dL (0.7-1.3) Estimated GFR Glucose POC Glucose 212 mg/dL H mg/dL (70-100) Calcium Total Bilirubin Conjugated Bilirubin Unconjugated Bilirubin AST ALT Alkaline Phosphatase Total Protein Albumin Lipase Patient ABO/Rh A POSITIVE Antibody Screen NEGATIVE Crossmatch IS Only See Detail 06/29/18 06/29/18 15:56 15:56 WBC 20.60 10^3/uL H 10^3/uL (3.80-9.50) RBC 2.19 10^6/uL L 10^6/uL (4.40-6.38) Hgb 7.5 g/dL L g/dL (13.7-17.5) POC Hgb Hct 22.9 % L % (40.0-51.0) POC Hct MCV 104.6 fL H fL (81.5-99.8) MCH 34.2 pg H pg (27.9-34.1) MCHC 32.8 g/dL g/dL (32.4-36.7) RDW 13.2 % % (11.5-15.2) Plt Count 139 10^3/uL L 10^3/uL (150-400) MPV 10.2 fL fL (8.7-11.7) Neut % (Auto) Not Reported Lymph % (Auto) Not Reported [place] % (Auto) Not Reported Eos % (Auto) Not Reported Baso % (Auto) Not Reported Nucleat RBC Rel Count Not Reported Absolute Neuts (auto) Not Reported Absolute Lymphs (auto) Not Reported Absolute Monos (auto) Not Reported Absolute Eos (auto) Not Reported Absolute Basos (auto) Not Reported Absolute Nucleated RBC Not Reported Immature Gran % Not Reported Seg Neutrophils % 94.0 % % Band Neutrophils % 0.0 % % Lymphocytes % 3.0 % % Monocytes % 3.0 % % Eosinophils % 0.0 % % Basophils % 0.0 % % Metamyelocytes % 0.0 % % Myelocytes % 0.0 % % Promyelocytes % 0.0 % % Blast Cells % 0.0 % % Immature Gran # Not Reported Absolute Seg Neuts 19.36 10^3/uL H 10^3/uL (1.70-6.50) Absolute Band Neuts 0.00 10^3/uL 10^3/uL (0.00-0.70) Absolute Lymphocytes 0.62 10^3/uL L 10^3/uL (1.00-3.00) Absolute Monocytes 0.62 10^3/uL 10^3/uL (0.30-0.80) Absolute Eosinophils 0.00 10^3/uL L 10^3/uL (0.03-0.40) Absolute Basophils 0.00 10^3/uL L 10^3/uL (0.02-0.10) Absolute Metamyelocyte 0.00 10^3/mL 10^3/mL (0.00-0.00) Absolute Myelocytes 0.00 10^3/mL 10^3/mL (0.00-0.00) Absolute Promyelocytes 0.00 10^3/uL 10^3/uL (0.00-0.00) Absolute Plasma Cells 0.00 10^3/uL 10^3/uL (0.00-0.00) Nucleated RBCs 0 /100 WBC /100 WBC (0-0) Absolute Blast Cells 0.00 10^3/uL 10^3/uL (0.00-0.00) Plasma Cells % 0.0 % % Platelet Estimate DECREASED L (ADEQ) Polychromasia 1+ H PT INR APTT POC Sodium Sodium 137 mEq/L mEq/L (135-145) POC Potassium Potassium 4.9 mEq/L mEq/L (3.5-5.2) POC Chloride Chloride 107 mEq/L mEq/L (97-110) Carbon Dioxide 21 mEq/l L mEq/l (22-31) POC Total CO2 Anion Gap 9 mEq/L mEq/L (6-14) POC BUN BUN 112 mg/dL H* mg/dL (7-23) Creatinine 1.4 mg/dL H mg/dL (0.7-1.3) POC Creatinine Estimated GFR 49 Glucose 197 mg/dL H mg/dL (70-100) POC Glucose Calcium 9.4 mg/dL mg/dL (8.5-10.4) Total Bilirubin 0.7 mg/dL mg/dL (0.1-1.4) Conjugated Bilirubin 0.2 mg/dL mg/dL (0.0-0.5) Unconjugated Bilirubin 0.5 mg/dL mg/dL (0.0-1.1) AST 21 IU/L IU/L (17-59) ALT 34 IU/L IU/L (21-72) Alkaline Phosphatase 30 IU/L L IU/L (38-126) Total Protein 5.2 g/dL L g/dL (6.3-8.2) Albumin 3.3 g/dL L g/dL (3.5-5.0) Lipase 1498 IU/L H IU/L (23-300) Patient ABO/Rh Antibody Screen Crossmatch IS Only Medications Given: Discontinued Medications Hydromorphone HCl (Dilaudid) 0.5 mg IVP EDNOW ONE Stop: 06/29/18 15:58 Last Admin: 06/29/18 16:13 Dose: 0.5 mg Sodium Chloride (Ns) 1,000 mls @ 0 mls/hr IV EDNOW ONE; Wide Open PRN Reason: Protocol Stop: 06/29/18 15:58 Last Admin: 06/29/18 16:12 Dose: 1,000 mls Ondansetron HCl (Zofran) 4 mg IVP EDNOW ONE Stop: 06/29/18 15:58 Last Admin: 06/29/18 16:13 Dose: 4 mg Pantoprazole Sodium (Protonix) 80 mg IVP EDNOW ONE Stop: 06/29/18 15:58 Last Admin: 06/29/18 16:13 Dose: 80 mg Point of Care Test Results: Chemistry 06/29/18 16:03 POC Sodium 138 mEq/L mEq/L (135-145) POC Potassium 4.9 mEq/L mEq/L (3.3-5.0) POC Chloride 107 mEq/L mEq/L (97-110) POC Total CO2 20 mEq/L L mEq/L (22-31) POC BUN 116 mg/dL H* mg/dL (7-23) POC Creatinine 1.4 mg/dL H mg/dL (0.7-1.3) POC Glucose 212 mg/dL H mg/dL (70-100) ISTAT H&H 06/29/18 16:03 POC Hgb 7.5 gm/dL L gm/dL (13.7-17.5) POC Hct 22 % L % (40-51) Departure - Departure Disposition: [facility] Inpatient Acute Clinical Impression: Upper GI bleed Condition: Serious Referrals: Patient,NotPresent [Primary Care Provider] - As per Instructions Report Scribed for: Serge Lee Report Scribed by: Chelsea Blount Date of Report: 06/29/18 Time of Report: 16:16
[2018-06-29] MEDS ORDERED: NS 1,000 ML IV ONE (15:57)
[2018-06-29] MEDS ORDERED: HYDROmorphONE/DILAUDID 2 MG/ML INJ IVP ONE (15:57)
[2018-06-29] MEDS ORDERED: PANTOPRAZOLE SODIUM 40 MG VIAL IVP ONE (15:57)
[2018-06-29] MEDS ORDERED: ONDANSETRON 4 MG/2 ML VIAL IVP ONE (15:57)
[2018-06-29 16:07] LABS: PLATELET COUNT 139 10^3/uL (150-400)
[2018-06-29 16:15] LABS: INR 1.11 (0.83-1.16); PROTIME(PATIENT) 13.9 SEC (12.0-15.0)
[2018-06-29] MEDS ORDERED: IOPAMIDOL (ISOVUE-300) 100 ML BTL ONE (16:29)
[2018-06-29] MEDS ORDERED: ONDANSETRON 4 MG/2 ML VIAL IVP PRN ×2 (16:36→18:54)
[2018-06-29] MEDS ORDERED: ONDANSETRON DISINTEGRATING 4 MG TAB PO PRN (16:36)
[2018-06-29] MEDS ORDERED: ACETAMINOPHEN 325 MG TAB PO PRN (16:36)
--- NOTE | 2018-06-29 16:47 | PDGENHP ---
<Gardenia Delgado - Last Filed: 06/29/18 18:17> History and Physical - Chief Complaint Melena, weakness, lethargy - History of Present Illness 83 y/o male w/ hx of systolic CHF, Diabetes II, hypertension, coronary artery disease and peptic ulcer disease presents to emergency room w/ 3 days worth of melena, weakness and lethargy. This is my first encounter w/the pt, my first time reviewing his past medical records. He was evaluated in the ED, lying supine and in no apparent distress. His was at bedside. He reports melena beginning on Wednesday and has felt so weak to the point he was unable to get out of bed. Endorses diffuse abdominal tenderness, however no vomiting. He denied CP, palpitations, shortness of breath, diarrhea, constipation, fever or chills. He seemed indifferent to my questions and refused to answer majority of them. He is chronically on oxygen supplementation 2-3L NC d/t CHF, but within the last week needed to use 4.5L NC. He is being admitted for further work-up, treatment and monitoring. He is a patient of Dr. Madison Arzola. Dr. Arzola and I spoke re: pt. She is aware of the circumstance and agrees w/outlined plan and current orders placed. Recognition of Dr. Arzola as primary admitting physician occurred after evaluation and initiation of H&P, therefore Dr. Arzola accepted myself and Dr. Foster to complete H&P w/the understanding she will be the admitting physician in AM and follow pt then throughout his hospital stay. History Information - Allergies/Home Medication List Allergies/Adverse Reactions: No Known Allergies Allergy (Verified 11/27/15 10:56) Home Medications: Ascorbic Acid [Vitamin C 500 mg (*)] 500 mg PO BID 11/27/15 [Last Taken 07/05/16 ] Cholecalciferol Vit D3 [Vitamin D3 2000 units tab (OTC)] 2,000 units PO TID [Last Taken 07/05/16] Colestipol HCl [Colestid (*)] 1 gm PO QID 11/27/15 [Last Taken 07/05/16] Diclofenac Sodium 1% [Voltaren Gel (*)] 1 akua TP DAILY PRN 11/27/15 [Last Taken 07/05/16] Finasteride [Proscar 5 MG (*)] 5 mg PO EVERY OTHER DAY 11/27/15 [Last Taken 10/11] Herbals/Supplements -Info Only 1 ea PO DAILY 11/27/15 [Last Taken 11/28/15] Hydrocodone/Acetaminophen [[place] 5/325 (*)] 1 each PO QID PRN 11/27/15 [Last Taken 07/06/16] [place]-3 Fatty Acids [Fish Oil 1000 mg (*)] 1,000 mg PO BID 11/27/15 [Last Taken 07/05/16] Quinine Sulfate 300mg 1 each PO HS 11/27/15 [Last Taken 12/04/15] Simvastatin [Zocor] 40 mg PO DAILY 11/27/15 [Last Taken 07/05/16] Aspirin [Aspirin 81mg (*)] 81 mg PO DAILY 06/15/16 [Last Taken 07/05/16] Vitamin B Complex [B Complex] 1 each PO DAILY 06/15/16 [Last Taken 07/05/16] LORazepam [Ativan (*)] 0.5 mg PO HS 07/06/16 [Last Taken 07/05/16] Lidocaine 5% [Lidoderm 5% Patch] 1 ea TD DAILY 07/06/16 [Last Taken Unknown] Denosumab [Prolia] 60 mg SQ Q180D 06/29/18 [Last Taken Unknown] Furosemide [Lasix 20 MG (*)] 20 mg PO DAILY 06/29/18 [Last Taken Unknown] Gabapentin [Neurontin 300 MG (*)] 300 mg PO TID 06/29/18 [Last Taken Unknown] MIRTAZAPINE [Remeron 7.5 mg] 7.5 mg PO HS 06/29/18 [Last Taken Unknown] Methocarbamol [Robaxin 750 mg (*)] 750 mg PO QID 06/29/18 [Last Taken Unknown] Multivitamins W-Minerals [Thera M Plus Tablet (*)] 1 each PO DAILY 06/29/18 [ Last Taken Unknown] Omeprazole 20 mg PO DAILY 06/29/18 [Last Taken Unknown] Sacubitril/Valsartan 49/51Mg [Entresto 49 mg/51 mg (RX)] 1 ea PO BID 06/29/18 [ Last Taken Unknown] Timolol 0.5% [TIMOPTIC 0.5% (*)] 1 drops EACHEYE DAILY 06/29/18 [Last Taken Unknown] I have personally reviewed and updated: family history, medical history, social history, surgical history - Past Medical History coronary artery disease, diabetes type 2, hypertension, hyperlipidemia Additional medical history: Systolic CHF Stage III-IV (wears supplemental oxygen 2-3L NC). Peptic Ulcer Disease - Surgical History Additional surgical history: Back surgery. Total Hip replacement. Total Knee replacement - Family History Positive for: non-pertinent - Social History Smoking Status: Former smoker Alcohol Use: None Drug Use: None Additional social history: , lives in [place]. Review of Systems Review of Systems: ROS: 10pt was reviewed & negative except for what was stated in HPI & below Physical Exam Physical Exam: Lab data and imaging were reviewed. WBC: 20.60 H/H: 7.5/22.0 BUN/Cr: 112/1.4 Lipase: 1498 EKG: Sinus tachycardia Abdominal pelvis w/contrast: serpentine high attenuation material in the fluid- filled stomach, which could be r/t active contrast extravasation from the patient's reported GI bleed. No evidence of perforation. Temp Pulse Resp BP Pulse Ox 37.1 C 130 H 16 120/69 98 06/29/18 15:51 06/29/18 15:51 06/29/18 15:51 06/29/18 15:51 06/29/18 15:51 Constitutional: no apparent distress, appears nourished, not in pain Eyes: PERRL, anicteric sclera, EOMI Ears, Nose, Mouth, Throat: hearing normal, ears appear normal, no oral mucosal ulcers, dry mucous membranes Cardiovascular: regular rate and rhythym, no murmur, rub, or gallop, tachycardia , No edema Peripheral Pulses: 2+: dorsalis-pedis (R), dorsalis-pedis (L) Respiratory: reduced air movement Gastrointestinal: normoactive bowel sounds, no palpable masses, tenderness Genitourinary: no bladder fullness, no bladder tenderness Skin: warm, normal color, no rashes or abrasions, no fluctuance, no induration, No mottled Musculoskeletal: generalized weakness Neurologic: AAOx3, sensation intact bilaterally, CN II-XII Intact Psychiatric: not anxious, not encephalopathic, thought process linear, flat affect Lymph, Heme, Immunologic: no cervical LAD, no supraclavicular LAD Lab Data & Imaging Review 06/29/18 15:56 06/29/18 15:56 WBC 20.60 10^3/uL (3.80-9.50) H 06/29/18 15:56 RBC 2.19 10^6/uL (4.40-6.38) L 06/29/18 15:56 Hgb 7.5 g/dL (13.7-17.5) L 06/29/18 15:56 POC Hgb 7.5 gm/dL (13.7-17.5) L 06/29/18 16:03 Hct 22.9 % (40.0-51.0) L 06/29/18 15:56 POC Hct 22 % (40-51) L 06/29/18 16:03 MCV 104.6 fL (81.5-99.8) H 06/29/18 15:56 MCH 34.2 pg (27.9-34.1) H 06/29/18 15:56 MCHC 32.8 g/dL (32.4-36.7) 06/29/18 15:56 RDW 13.2 % (11.5-15.2) 06/29/18 15:56 Plt Count 139 10^3/uL (150-400) L 06/29/18 15:56 MPV 10.2 fL (8.7-11.7) 06/29/18 15:56 Neut % (Auto) Not Reported 06/29/18 15:56 Lymph % (Auto) Not Reported 06/29/18 15:56 [place] % (Auto) Not Reported 06/29/18 15:56 Eos % (Auto) Not Reported 06/29/18 15:56 Baso % (Auto) Not Reported 06/29/18 15:56 Nucleat RBC Rel Count Not Reported 06/29/18 15:56 Absolute Neuts (auto) Not Reported 06/29/18 15:56 Absolute Lymphs (auto) Not Reported 06/29/18 15:56 Absolute Monos (auto) Not Reported 06/29/18 15:56 Absolute Eos (auto) Not Reported 06/29/18 15:56 Absolute Basos (auto) Not Reported 06/29/18 15:56 Absolute Nucleated RBC Not Reported 06/29/18 15:56 Immature Gran % Not Reported 06/29/18 15:56 Seg Neutrophils % 94.0 % 06/29/18 15:56 Band Neutrophils % 0.0 % 06/29/18 15:56 Lymphocytes % 3.0 % 06/29/18 15:56 Monocytes % 3.0 % 06/29/18 15:56 Eosinophils % 0.0 % 06/29/18 15:56 Basophils % 0.0 % 06/29/18 15:56 Metamyelocytes % 0.0 % 06/29/18 15:56 Myelocytes % 0.0 % 06/29/18 15:56 Promyelocytes % 0.0 % 06/29/18 15:56 Blast Cells % 0.0 % 06/29/18 15:56 Immature Gran # Not Reported 06/29/18 15:56 Absolute Seg Neuts 19.36 10^3/uL (1.70-6.50) H 06/29/18 15:56 Absolute Band Neuts 0.00 10^3/uL (0.00-0.70) 06/29/18 15:56 Absolute Lymphocytes 0.62 10^3/uL (1.00-3.00) L 06/29/18 15:56 Absolute Monocytes 0.62 10^3/uL (0.30-0.80) 06/29/18 15:56 Absolute Eosinophils 0.00 10^3/uL (0.03-0.40) L 06/29/18 15:56 Absolute Basophils 0.00 10^3/uL (0.02-0.10) L 06/29/18 15:56 Absolute Metamyelocyte 0.00 10^3/mL (0.00-0.00) 06/29/18 15:56 Absolute Myelocytes 0.00 10^3/mL (0.00-0.00) 06/29/18 15:56 Absolute Promyelocytes 0.00 10^3/uL (0.00-0.00) 06/29/18 15:56 Absolute Plasma Cells 0.00 10^3/uL (0.00-0.00) 06/29/18 15:56 Nucleated RBCs 0 /100 WBC (0-0) 06/29/18 15:56 Absolute Blast Cells 0.00 10^3/uL (0.00-0.00) 06/29/18 15:56 Plasma Cells % 0.0 % 06/29/18 15:56 Platelet Estimate DECREASED (ADEQ) L 06/29/18 15:56 Polychromasia 1+ H 06/29/18 15:56 PT 13.9 SEC (12.0-15.0) 06/29/18 15:56 INR 1.11 (0.83-1.16) 06/29/18 15:56 APTT 23.9 SEC (23.0-38.0) 06/29/18 15:56 POC Sodium 138 mEq/L (135-145) 06/29/18 16:03 Sodium 137 mEq/L (135-145) 06/29/18 15:56 POC Potassium 4.9 mEq/L (3.3-5.0) 06/29/18 16:03 Potassium 4.9 mEq/L (3.5-5.2) 06/29/18 15:56 POC Chloride 107 mEq/L (97-110) 06/29/18 16:03 Chloride 107 mEq/L (97-110) 06/29/18 15:56 Carbon Dioxide 21 mEq/l (22-31) L 06/29/18 15:56 POC Total CO2 20 mEq/L (22-31) L 06/29/18 16:03 Anion Gap 9 mEq/L (6-14) 06/29/18 15:56 POC BUN 116 mg/dL (7-23) H* 06/29/18 16:03 BUN 112 mg/dL (7-23) H* 06/29/18 15:56 Creatinine 1.4 mg/dL (0.7-1.3) H 06/29/18 15:56 POC Creatinine 1.4 mg/dL (0.7-1.3) H 06/29/18 16:03 Estimated GFR 49 06/29/18 15:56 Glucose 197 mg/dL (70-100) H 06/29/18 15:56 POC Glucose 212 mg/dL (70-100) H 06/29/18 16:03 Calcium 9.4 mg/dL (8.5-10.4) 06/29/18 15:56 Total Bilirubin 0.7 mg/dL (0.1-1.4) 06/29/18 15:56 Conjugated Bilirubin 0.2 mg/dL (0.0-0.5) 06/29/18 15:56 Unconjugated Bilirubin 0.5 mg/dL (0.0-1.1) 06/29/18 15:56 AST 21 IU/L (17-59) 06/29/18 15:56 ALT 34 IU/L (21-72) 06/29/18 15:56 Alkaline Phosphatase 30 IU/L (38-126) L 06/29/18 15:56 Total Protein 5.2 g/dL (6.3-8.2) L 06/29/18 15:56 Albumin 3.3 g/dL (3.5-5.0) L 06/29/18 15:56 Lipase 1498 IU/L (23-300) H 06/29/18 15:56 Crossmatch IS Only See Detail 06/29/18 16:00 Assessment & Plan Plan: 83 y/o male w/systolic CHF, CAD, HTN, DMII, and PUD presents to ED w/ 3 days worth of melena accompanied w/weakness and lethargy. The weakness was so severe he was unable to get out of his bed today, therefore called EMS for assistance. Current vital signs are BP 120/69, HR 130, Resp 16, 37.1c, 98% 2L NC #Suspected upper gastrointestinal bleed: He received the following medications in the ED w/mild abdominal pain relief: 1LNS, Dilaudid, zofran, protonix -GI consulted. I spoke to Dr. Tavarez. Most likely scope today therefore will be NPO now. -Pt needs 2 PIV access -ED initiated 2u RBC transfusions -Will check H/H later tonight after transfusion(s) -Cont tele monitoring -Protonix in AM #Hx of PUD #Weakness, lethargy: I suspect this is d/t probable UGIB -PT/OT to evaluate and treat #Systolic Congestive Heart Failure Class III-IV: Chronically on 2-3L NC supplemental oxygen. He had a recent echo in Mar 2018 that demonstrated normal left ventricular systolic function w/no wall motion abnormalities w/normal thickening. EF 58%. #Non-obstructing renal disease: BUN/Cr 112/1.4. Baseline 34/1.0. Suspect UGIB as component to BUN/Cr bump. Received 1L NS in ED. Will need to be cognizant of IVF use d/t above condition however he appears to be hypovolemic w/dry mucous membrane and tenting. No BLE pitting edema or JVD noted. He will receive 2 units of RBCs for a low H/H. Reassess after RBC transfusion whether IVF is needed. Avoid nephrotoxic agents. #Hypertension: stable. #NIDDM: Diet controlled. ISS in house, glucose checks TID before meals Once pharmacy verifies home medications, will reconcile Diet: NPO for procedure, then may transition to cardiac Code: DNR VTE ppx: SCDs Dispo: Admit to inpatient <Samir Foster - Last Filed: 06/30/18 00:59> History and Physical - History of Present Illness Review of Systems Review of Systems: Physical Exam Physical Exam: Temp Pulse Resp BP Pulse Ox 37.2 C 116 H 26 H 116/63 97 06/30/18 00:00 06/30/18 00:00 06/30/18 00:00 06/30/18 00:00 06/30/18 00:00 O2 (L/minute) 1.5 Lab Data & Imaging Review 06/29/18 23:00 06/29/18 15:56 WBC 20.60 10^3/uL (3.80-9.50) H 06/29/18 15:56 RBC 2.19 10^6/uL (4.40-6.38) L 06/29/18 15:56 Hgb 8.9 g/dL (13.7-17.5) L 06/29/18 23:00 POC Hgb 7.5 gm/dL (13.7-17.5) L 06/29/18 16:03 Hct 26.7 % (40.0-51.0) L 06/29/18 23:00 POC Hct 22 % (40-51) L 06/29/18 16:03 MCV 104.6 fL (81.5-99.8) H 06/29/18 15:56 MCH 34.2 pg (27.9-34.1) H 06/29/18 15:56 MCHC 32.8 g/dL (32.4-36.7) 06/29/18 15:56 RDW 13.2 % (11.5-15.2) 06/29/18 15:56 Plt Count 139 10^3/uL (150-400) L 06/29/18 15:56 MPV 10.2 fL (8.7-11.7) 06/29/18 15:56 Neut % (Auto) Not Reported 06/29/18 15:56 Lymph % (Auto) Not Reported 06/29/18 15:56 [place] % (Auto) Not Reported 06/29/18 15:56 Eos % (Auto) Not Reported 06/29/18 15:56 Baso % (Auto) Not Reported 06/29/18 15:56 Nucleat RBC Rel Count Not Reported 06/29/18 15:56 Absolute Neuts (auto) Not Reported 06/29/18 15:56 Absolute Lymphs (auto) Not Reported 06/29/18 15:56 Absolute Monos (auto) Not Reported 06/29/18 15:56 Absolute Eos (auto) Not Reported 06/29/18 15:56 Absolute Basos (auto) Not Reported 06/29/18 15:56 Absolute Nucleated RBC Not Reported 06/29/18 15:56 Immature Gran % Not Reported 06/29/18 15:56 Seg Neutrophils % 94.0 % 06/29/18 15:56 Band Neutrophils % 0.0 % 06/29/18 15:56 Lymphocytes % 3.0 % 06/29/18 15:56 Monocytes % 3.0 % 06/29/18 15:56 Eosinophils % 0.0 % 06/29/18 15:56 Basophils % 0.0 % 06/29/18 15:56 Metamyelocytes % 0.0 % 06/29/18 15:56 Myelocytes % 0.0 % 06/29/18 15:56 Promyelocytes % 0.0 % 06/29/18 15:56 Blast Cells % 0.0 % 06/29/18 15:56 Immature Gran # Not Reported 06/29/18 15:56 Absolute Seg Neuts 19.36 10^3/uL (1.70-6.50) H 06/29/18 15:56 Absolute Band Neuts 0.00 10^3/uL (0.00-0.70) 06/29/18 15:56 Absolute Lymphocytes 0.62 10^3/uL (1.00-3.00) L 06/29/18 15:56 Absolute Monocytes 0.62 10^3/uL (0.30-0.80) 06/29/18 15:56 Absolute Eosinophils 0.00 10^3/uL (0.03-0.40) L 06/29/18 15:56 Absolute Basophils 0.00 10^3/uL (0.02-0.10) L 06/29/18 15:56 Absolute Metamyelocyte 0.00 10^3/mL (0.00-0.00) 06/29/18 15:56 Absolute Myelocytes 0.00 10^3/mL (0.00-0.00) 06/29/18 15:56 Absolute Promyelocytes 0.00 10^3/uL (0.00-0.00) 06/29/18 15:56 Absolute Plasma Cells 0.00 10^3/uL (0.00-0.00) 06/29/18 15:56 Nucleated RBCs 0 /100 WBC (0-0) 06/29/18 15:56 Absolute Blast Cells 0.00 10^3/uL (0.00-0.00) 06/29/18 15:56 Plasma Cells % 0.0 % 06/29/18 15:56 Platelet Estimate DECREASED (ADEQ) L 06/29/18 15:56 Polychromasia 1+ H 06/29/18 15:56 PT 13.9 SEC (12.0-15.0) 06/29/18 15:56 INR 1.11 (0.83-1.16) 06/29/18 15:56 APTT 23.9 SEC (23.0-38.0) 06/29/18 15:56 POC Sodium 138 mEq/L (135-145) 06/29/18 16:03 Sodium 137 mEq/L (135-145) 06/29/18 15:56 POC Potassium 4.9 mEq/L (3.3-5.0) 06/29/18 16:03 Potassium 4.9 mEq/L (3.5-5.2) 06/29/18 15:56 POC Chloride 107 mEq/L (97-110) 06/29/18 16:03 Chloride 107 mEq/L (97-110) 06/29/18 15:56 Carbon Dioxide 21 mEq/l (22-31) L 06/29/18 15:56 POC Total CO2 20 mEq/L (22-31) L 06/29/18 16:03 Anion Gap 9 mEq/L (6-14) 06/29/18 15:56 POC BUN 116 mg/dL (7-23) H* 06/29/18 16:03 BUN 112 mg/dL (7-23) H* 06/29/18 15:56 Creatinine 1.4 mg/dL (0.7-1.3) H 06/29/18 15:56 POC Creatinine 1.4 mg/dL (0.7-1.3) H 06/29/18 16:03 Estimated GFR 49 06/29/18 15:56 Glucose 197 mg/dL (70-100) H 06/29/18 15:56 POC Glucose 185 mg/dL (70-100) H 06/29/18 22:05 Calcium 9.4 mg/dL (8.5-10.4) 06/29/18 15:56 Total Bilirubin 0.7 mg/dL (0.1-1.4) 06/29/18 15:56 Conjugated Bilirubin 0.2 mg/dL (0.0-0.5) 06/29/18 15:56 Unconjugated Bilirubin 0.5 mg/dL (0.0-1.1) 06/29/18 15:56 AST 21 IU/L (17-59) 06/29/18 15:56 ALT 34 IU/L (21-72) 06/29/18 15:56 Alkaline Phosphatase 30 IU/L (38-126) L 06/29/18 15:56 Total Protein 5.2 g/dL (6.3-8.2) L 06/29/18 15:56 Albumin 3.3 g/dL (3.5-5.0) L 06/29/18 15:56 Lipase 1498 IU/L (23-300) H 06/29/18 15:56 Patient ABO/Rh A POSITIVE 06/29/18 16:00 Antibody Screen NEGATIVE 06/29/18 16:00 Crossmatch IS Only See Detail 06/29/18 16:00 Assessment & Plan Assessment: I have seen the patient, reviewed the chart and labs and agree with Liya Delgado in her assessment and plan as outlined.
[2018-06-29] MEDS ORDERED: D50W 25 GM/50 ML SYR IVP PRN (16:51)
[2018-06-29] MEDS ORDERED: LR 1,000 ML IV ONE (17:31)
--- NOTE | 2018-06-29 17:46 | PDANEPAE ---
ANE History of Present Illness Hematochezia, severe anemia, for EGD ANE Past Medical History - Cardiovascular History Hx Hypertension: Yes Hx Arrhythmias: No Hx Chest Pain: No Hx Coronary Artery / Peripheral Vascular Disease: No Hx CHF / Valvular Disease: Yes Hx Palpitations: No Cardiovascular History Comment: PCP MONITORS BP MEDS - Pulmonary History Hx COPD: Yes Hx Asthma/Reactive Airway Disease: No Hx Recent Upper Respiratory Infection: No Hx Oxygen in Use at Home: Yes O2 in Use at Home (L/minute): 2 Hx Sleep Apnea: Yes Pulmonary History Comment: beth positive - Neurologic History Hx Cerebrovascular Accident: No Hx Seizures: No Hx Dementia: No Neurologic History Comment: HX OF LAMI WITH V - Endocrine History Hx Diabetes: Yes Hypothyroid: No Hyperthyroid: No Obesity: no Endocrine History Comment: TYPE 2 DM, on diet-control - Renal History Hx Renal Disorders: No - Liver History Hx Hepatic Disorders: No - Neurological & Psychiatric Hx Hx Neurological and Psychiatric Disorders: No - Cancer History Hx Cancer: No - Congenital Disorder History Hx Congenital Disorders: No - GI History GERD: no Hx Gastrointestinal Disorders: Yes Gastrointestinal History Comment: REFLUX- ON OTC PRILOSEC - Other Health History Other Health History: RASH ON RIGHT BUTTOCK- INSTRUCTED PT TO SHOW DR BUENROSTRO AT [facility] 04/23 - Chronic Pain History Chronic Pain: Yes (RIGHT HIP PAIN) - Surgical History Prior Surgeries: LEFT ANNETTE WITH ANA 1999. RIGHT TKA WITH ANA 02/20/11. RIGHT KNEE WASHOUT WITH ANA 10/04/13. L3-[address] Mayorga 08/09/08 RIA Review of Systems Review of Systems: - Exercise capacity METS (RN): 2 METS ANE Patient History - Allergies Allergies/Adverse Reactions: No Known Allergies Allergy (Verified 11/27/15 10:56) - Home Medications Home Medications: Ascorbic Acid [Vitamin C 500 mg (*)] 500 mg PO BID 11/27/15 [Last Taken 07/05/16 ] Cholecalciferol Vit D3 [Vitamin D3 2000 units tab (OTC)] 2,000 units PO TID [Last Taken 07/05/16] Colestipol HCl [Colestid (*)] 1 gm PO QID 11/27/15 [Last Taken 07/05/16] Diclofenac Sodium 1% [Voltaren Gel (*)] 1 akua TP DAILY PRN 11/27/15 [Last Taken 07/05/16] Finasteride [Proscar 5 MG (*)] 5 mg PO EVERY OTHER DAY 11/27/15 [Last Taken 10/11] Herbals/Supplements -Info Only 1 ea PO DAILY 11/27/15 [Last Taken 11/28/15] Hydrocodone/Acetaminophen [Newborn 5/325 (*)] 1 each PO QID PRN 11/27/15 [Last Taken 07/06/16] [place]-3 Fatty Acids [Fish Oil 1000 mg (*)] 1,000 mg PO BID 11/27/15 [Last Taken 07/05/16] Quinine Sulfate 300mg 1 each PO HS 11/27/15 [Last Taken 12/04/15] Simvastatin [Zocor] 40 mg PO DAILY 11/27/15 [Last Taken 07/05/16] Travoprost Z 0.004% [Travatan Z 0.004% (*)] 1 drops EACHEYE DAILY 11/27/15 [ Last Taken 07/05/16] Aspirin [Aspirin 81mg (*)] 81 mg PO DAILY 06/15/16 [Last Taken 07/05/16] Losartan Potassium [Cozaar 25 mg (*)] 25 mg PO DAILY 06/15/16 [Last Taken ] Vitamin B Complex [B Complex] 1 each PO DAILY 06/15/16 [Last Taken 07/05/16] Furosemide [Lasix 40 MG (*)] 40 mg PO DAILY 07/06/16 [Last Taken 07/05/16] LORazepam [Ativan (*)] 0.5 mg PO HS 07/06/16 [Last Taken 07/05/16] Lidocaine 5% [Lidoderm 5% Patch] 1 ea TD DAILY 07/06/16 [Last Taken Unknown] Multivitamins W-Minerals [Thera M Plus Tablet (*)] 1 each PO DAILY 06/29/18 [ Last Taken Unknown] - Anes Hx Anes Hx: no prior problems - Smoking Hx Smoking Status: Former smoker - Alcohol Use Alcohol Use: None - Family Anes Hx Family Anes Hx: none Family Hx Anesthesia Complications: NONE ANE Labs/Vital Signs - Labs Result Diagrams: 06/29/18 15:56 06/29/18 15:56 - Vital Signs Blood Pressure: 112/72 Heart Rate: 123 Respiratory Rate: 18 O2 Sat (%): 96 Weight: 61.235 kg ANE Physical Exam - Airway Neck exam: decreased ROM Mallampati Score: Class 3 Mouth exam: normal dental/mouth exam (upper front caps) - Pulmonary Pulmonary: clear to auscultation - Cardiovascular Cardiovascular: regular rate and rhythym, tachycardia - ASA Status ASA Status: III, E ANE Anesthesia Plan Anesthesia Plan: general endotracheal anesthesia
[2018-06-29] MEDS ORDERED: PROPOFOL 200 MG/20 ML VIAL ONE ×2 (17:47→18:35)
[2018-06-29] MEDS ORDERED: ROCURONIUM 50 MG/5 ML VIAL ONE (18:20)
[2018-06-29] MEDS ORDERED: SUCCINYLCHOLINE CHLORIDE 200 MG/10 ML SYR IVP ONE (18:21)
[2018-06-29] MEDS ORDERED: PHENYLEPHRINE HCL 100 MCG/ML SYR ONE (18:46)
[2018-06-29] MEDS ORDERED: NALOXONE HCL 0.4 MG/ML INJ IVP PRN (18:54)
[2018-06-29] MEDS ORDERED: fentaNYL 100 MCG/2 ML INJ IVP PRN (18:54)
--- NOTE | 2018-06-29 18:59 | GIREPORT ---
[facility] - Endoscopy Department Patient Name: Manuel Lee Procedure Date: 06/29/2018 5:10 PM Patient Type: Emergency Department Attending MD/ ER Physician: Dirk Tavarez MD Procedure: Upper GI endoscopy Indications: Hematemesis, Melena Providers: Dirk Tavarez MD Medicines: General Anesthesia Complications: No immediate complications. Description of Procedure: After obtaining informed consent, the endoscope was passed under direct vision. Throughout the procedure, the patient's blood pressure, pulse, and oxygen saturations were monitored continuously. The Endoscope was intro duced through the mouth, and advanced to the second part of duodenum. [facility] GI endoscopy was somewhat difficult due to excessive bleeding. The patient tolerated the procedure. Findings: A 8 mm bleeding Jennifer-Yi tear/ulceration with stigmata of recent bleeding was found at GEJ. Area was successfully injected with 3 mL of a 1:10,000 solution of epinephrine for hemostasis. For hemostasis, two hemostatic clips were successfully placed. There was no bleeding at the end of the procedure. A medium-sized hiatal hernia was present. The entire examined stomach was normal. Hematin (altered blood/juarmi-bgoeen-qmuv material and red blood) was f ound in the entire examined stomach. Multiple diffuse erosions without bleeding were found in the first port ion of the duodenum. The second portion of the duodenum was normal. Estimated Blood Loss: Estimated blood loss: none. Post Op Diagnosis: - Jennifer-Yi tear. Injected. Clips were placed. - Medium-sized hiatal hernia. - Normal stomach. - Hematin (altered blood/hodqln-qxssau-kann material) in the entire sto mach. - Erosive duodenopathy without bleeding. - Normal second portion of the duodenum. - No specimens collected. Recommendation: - Observe patient's clinical course. - Observe in ICU - Use Protonix (pantoprazole) 40 mg IV BID. - NPO. - Serial H and H - Transfuse 2 units of PRBCs - Thank you for allowing me to participate in the care of your patient. Attending Participation: I personally performed the entire procedure. Dirk Tavarez MD Dirk Tavarez MD 06/29/2018 6:58:42 PM This report has been signed electronicallyStolu Tavarez MD Number of Addenda: 0 Note Initiated On: 06/29/2018 5:10 PM [email or web address]
[2018-06-29] MEDS: INSULIN LISPRO 100 UNIT/ML SC SCH (19:29)
--- NOTE | 2018-06-29 19:35 | POSTANESTH ---
Post Anesthetic Evaluation Cardiovascular Status: Similar to Pre-Op Cond Respiratory Status: Similar to Pre-op Cond. Level of Consciousness/Mental Status: Moderately Sleepy Pain Control: Adequate, Prn Tx Ordered Nausea/Vomiting Control: Adequate, Prn Tx Ordered Complications Possibly Related to Anesthesia: None Noted
--- NOTE | 2018-06-29 19:42 | CPEKG ---
Test Reason : OPEN Blood Pressure : / mmHG Vent. Rate : 128 BPM Atrial Rate : 128 BPM P-R Int : 147 ms QRS Dur : 080 ms QT Int : 262 ms P-R-T Axes : 070 027 246 degrees QTc Int : 383 ms Sinus tachycardia Nonspecific T abnormalities, diffuse leads Confirmed by Serge Lee ([id number]) on 06/29/2018 7:42:27 PM Referred By: Serge Lee Confirmed By:Serge Lee
[2018-06-29] MEDS ORDERED: ALBUTEROL 60 PUFFS/8 GM MDI IH PRN (19:47)
--- NOTE | 2018-06-29 20:19 | GCON ---
[f rep st] CONSULTATION CHIEF COMPLAINT: GI bleed. HISTORY OF PRESENT ILLNESS: I have been asked to see this 83-year-old gentleman in consultation by Dr. Gardenia Delgado for evaluation of GI bleeding. Patient has had multiple medical problems to include congestive heart failure. He is on 2-3 L of supplemental oxygen. He also has a history of diabetes mellitus, hypertension. He had been complaining of weakness and lethargy with black and tarry stool for the last 3 days. He denies any diarrhea. He has been having some upper abdominal pain. He was progressively getting weak. EMS was called. He was brought to the emergency department. He has no significant history of alcohol use. Patient has not been on anticoagulation and does take a baby aspirin. Report of questinal remote history of PUD, however, patient is a poor historian. PAST MEDICAL HISTORY: CAD, CHF on O2, Diabetes mellitus, hypertension, History of PUD, Hyperlipidemia PAST SURGICAL HISTORY: Total hip replacement, Total knee replacement, Back surgery ALLERGIES: He has no known drug allergies. MEDICATIONS: Prior to admission included ascorbic acid, vitamin D3, Colestid, Voltaren gel, Proscar, herbal supplements, [place], omega-3 fatty acids, quinine sulfate, simvastatin, aspirin, losartan, vitamin B, furosemide, lorazepam, albuterol, Coreg, spironolactone, tramadol. FAMILY HISTORY: Negative as it pertains to chief complaint. SOCIAL HISTORY: Nonsmoker, nondrinker. REVIEW OF SYSTEMS: Negative 10 systems other than mentioned in HPI. PHYSICAL EXAM: VITAL SIGNS: 112/72, heart rate 123, afebrile at 37.6, respiratory rate 18. GENERAL: Very weak appearing elderly gentleman lying in bed. HEENT: Normocephalic, atraumatic. EOMI. NECK: Supple. No cervical adenopathy. No thyromegaly. HEENT: Mucous membranes are moist. LUNGS: Clear. CARDIAC: Exam normal. S1, S2 without murmur. ABDOMEN: Soft, without hepatosplenomegaly. Slight tenderness to palpation in the epigastrium. EXTREMITIES: No clubbing, cyanosis, edema. NEURO: Grossly nonfocal. SKIN: Warm, dry. PSYCH: Patient is extremely weak, but has a normal affect and acts appropriately. LABORATORY DATA: Hematocrit 22, MCV of 104.6, white count of 20.6. PT of 13.9 with INR of 1.11. Serum sodium 138, potassium 4.9, chloride 107, CO2 20, BUN of 116, creatinine 1.4, blood sugar 212. CT scan abdomen: Questionable hemangioma in the liver, compression fraction, otherwise no acute findings on CT scan of the abdomen. IMPRESSION: 83-year-old gentleman with acute upper GI bleed. RECOMMENDATIONS: 1. Patient admitted, IV hydration resuscitation. 2. Transfuse 2 units of packed red blood cells. 3. IV Protonix 80 mg bolus in 8 mg/hour. 4. N.p.o. 5. Proceed with emergent urgent endoscopy for further management of upper GI bleeding. Will follow with you. /[id number]/MODL MTDD
[2018-06-29] MEDS: PANTOPRAZOLE SODIUM 40 MG VIAL IVP SCH (23:12)
[2018-06-30] MEDS: PANTOPRAZOLE SODIUM 40 MG VIAL IVP SCH ×4 (05:07→23:22)
[2018-06-30 05:47] LABS: PLATELET COUNT 100 10^3/uL (150-400)
[2018-06-30] MEDS ORDERED: CARVEDILOL 6.25 MG TAB PO SCH (08:00)
[2018-06-30] MEDS: INSULIN LISPRO 100 UNIT/ML SC SCH ×3 (08:32→18:15)
--- NOTE | 2018-06-30 08:58 | SOAPPROG ---
SOAP Progress Note Assessment/Plan: Assessment: Plan: 06/30/18 08:56 upper GI bleed. Dallin is still quite tired and miserable. EGD with MW like tear and blood in stomach. on IV PPI appreciate GI consult CAD with reduced EF, tachy today, will resume part of his CAD med routine and follow HER and BP closely COPD--continue oxygen, check CXR given elevated, but improving WBC anemia--repeat Hgb pending. Transfuse to 9 given COPD/CAD/CHF Subjective: Dallin is feeling weak and tired. Abdomen hurts diffusely. He is thirsty. He feels SOB. + dry cough Objective: Vital Signs Temp Pulse Resp BP Pulse Ox 37.0 C 112 H 22 H 126/64 H 93 06/30/18 08:00 06/30/18 08:00 06/30/18 08:00 06/30/18 08:00 06/30/18 08:00 Laboratory Results 06/30/18 05:16 06/30/18 05:16 06/29/18 06/30/18 07/01/18 05:59 05:59 05:59 Output Total 700 Balance -700 PT 13.9 SEC (12.0-15.0) 06/29/18 15:56 INR 1.11 (0.83-1.16) 06/29/18 15:56 Gen: pale, quiet Lungs: stable diminished breath sounds, known severe COPD on chronic oxygen Heart: tachy regular Abd + bs soft, tender diffusely LE's no edema WBC 20 --> 15 Hgb 8.2 ICD10 Worksheet Patient Problems: Problems Problem Status Onset Upper GI bleed Acute Fusion of lumbar spine Acute Primary localized osteoarthritis of right hip Acute
[2018-06-30] MEDS ORDERED: PANTOPRAZOLE SODIUM 40 MG VIAL IVP SCH (09:00)
[2018-06-30] MEDS: CARVEDILOL 6.25 MG TAB PO SCH ×2 (09:31→18:14)
--- NOTE | 2018-06-30 09:36 | SOAPPROG ---
SOAP Progress Note Assessment/Plan: Assessment: GI Bleed, MW tear. No signs or symptoms of bleeding. Transfused with 2 units of PRBC's Slight drift down in Hct. Plan: 1. Recheck H and H this morning, if stable start clear liquid diet. 2. If H and H lower would transfuse one more unit of PRBC's 3. When taking PO can d/c IV pantoprazole and swithc to Pantoprazole 40 mg PO BID 06/30/18 09:33 Subjective: CC: GI Bleed No significant events last night. No signs or symptoms of GI bleeding. Denies abdominal pain. Awake and alert. Objective: Vital Signs Temp Pulse Resp BP Pulse Ox 37.0 C 112 H 22 H 126/64 H 93 06/30/18 08:00 06/30/18 08:00 06/30/18 08:00 06/30/18 08:00 06/30/18 08:00 Laboratory Results 06/30/18 09:05 06/30/18 05:16 06/29/18 06/30/18 07/01/18 05:59 05:59 05:59 Output Total 700 Balance -700 PT 13.9 SEC (12.0-15.0) 06/29/18 15:56 INR 1.11 (0.83-1.16) 06/29/18 15:56 Generic Name Dose Route Start Last Admin Trade Name Freq PRN Reason Stop Dose Admin Acetaminophen 650 mg 06/29/18 16:36 Tylenol PO 12/26/18 16:35 Q4HRS PRN Pain, Mild/Fever, Can Take PO Albuterol 1 puffs 06/29/18 19:47 Proventil Inhaler IH 12/26/18 19:46 Q6 PRN DYSPNEA Carvedilol 3.125 mg 06/30/18 09:00 06/30/18 09:31 Coreg PO 12/27/18 07:59 3.125 mg BIDMEAL KRISTEL Administration Dextrose 25 gm 06/29/18 16:51 Dextrose 50% Syringe IVP 12/26/18 16:50 PRN PRN Hypoglycemia Finasteride 5 mg 07/01/18 09:00 Proscar PO 12/28/18 08:59 EVERY OTHER DAY KRISTEL Sodium Chloride 1,000 mls @ 75 mls/hr 06/30/18 09:15 Ns IV 12/27/18 09:14 CONT [facility] Insulin Human Lispro 0 unit 06/29/18 18:00 06/30/18 08:32 Humalog Lispro SC 12/26/18 17:59 Not Given TIDMEAL [facility] Protocol Lorazepam 0.5 mg 06/30/18 21:00 Ativan PO 12/27/18 20:59 HS [facility] Mirtazapine 7.5 mg 06/30/18 21:00 Remeron PO 12/27/18 20:59 HS [facility] Ondansetron HCl 4 mg 06/29/18 16:36 Zofran IVP 12/26/18 16:35 Q4HRS PRN Nausea/Vomiting, Can't Take PO Ondansetron HCl 4 mg 06/29/18 16:36 Zofran Odt PO 12/26/18 16:35 Q4HRS PRN Nausea/Vomiting, Use 1st Pantoprazole Sodium 40 mg 06/29/18 23:00 06/30/18 05:07 Protonix IVP 12/26/18 22:59 40 mg Q6H [facility] Administration Discontinued Medications Generic Name Dose Route Start Last Admin Trade Name Freq PRN Reason Stop Dose Admin Carvedilol 6.25 mg 06/30/18 08:00 06/30/18 09:34 Coreg PO 12/27/18 07:59 Not Given BIDMEAL [facility] Fentanyl 25 - 100 mcg 06/29/18 18:54 Sublimaze IVP 06/29/18 19:55 Q5M PRN PACU, IMMEDIATE Pain control Hydromorphone HCl 0.5 mg 06/29/18 15:57 06/29/18 16:13 Dilaudid IVP 06/29/18 15:58 0.5 mg EDNOW ONE Administration Sodium Chloride 1,000 mls @ 0 mls/hr 06/29/18 15:57 06/29/18 16:12 Ns IV 06/29/18 15:58 1,000 mls EDNOW ONE Administration Protocol Wide Open Lactated Ringer's 1,000 mls @ 0 mls/hr 06/29/18 17:31 06/29/18 17:49 Lr IV 06/29/18 17:32 1,000 mls ONCE ONE Administration As Directed Iopamidol Confirm 06/29/18 16:29 Isovue-300 Administered 06/29/18 16:30 Dose 100 ml .ROUTE .STK-MED ONE Naloxone HCl 0.1 mg 06/29/18 18:54 Narcan IVP 06/29/18 19:55 Q2M PRN PACU Resp Rate <10/min Ondansetron HCl 4 mg 06/29/18 15:57 06/29/18 16:13 Zofran IVP 06/29/18 15:58 4 mg EDNOW ONE Administration Ondansetron HCl 2 - 4 mg 06/29/18 18:54 Zofran IVP 06/29/18 19:55 Q10M PRN PACU, Nausea/Vomiting Pantoprazole Sodium 80 mg 06/29/18 15:57 06/29/18 16:13 Protonix IVP 06/29/18 15:58 80 mg EDNOW ONE Administration Pantoprazole Sodium 40 mg 06/30/18 09:00 Protonix IVP 12/27/18 08:59 BID KRISTEL Phenylephrine HCl Confirm 06/29/18 18:46 Neosynephrine Administered 06/29/18 18:47 Dose 1,000 mcg .ROUTE .STK-MED ONE Propofol Confirm 06/29/18 17:47 Diprivan Administered 06/29/18 17:48 Dose 200 mg .ROUTE .STK-MED ONE Propofol Confirm 06/29/18 18:35 Diprivan Administered 06/29/18 18:36 Dose 200 mg .ROUTE .STK-MED ONE Rocuronium [place] Confirm 06/29/18 18:20 Zemuron Administered 06/29/18 18:21 Dose 50 mg .ROUTE .STK-MED ONE Succinylcholine Chloride Confirm 06/29/18 18:21 Quelicin Administered 06/29/18 18:22 Dose 200 mg IVP .STK-MED ONE Sufentanil Citrate Confirm 06/29/18 18:14 Sufenta Administered 06/29/18 18:15 Dose 50 mcg .ROUTE .STK-MED ONE Physical Exam - Physical Exam General Appearance: no apparent distress Respiratory: lungs clear, normal breath sounds Cardiac/Chest: regular rate, rhythm Abdomen: normal bowel sounds, non-tender, soft Skin: normal color, warm/dry Neuro/Psych: alert ICD10 Worksheet Patient Problems: Problems Problem Status Onset Upper GI bleed Acute Fusion of lumbar spine Acute Primary localized osteoarthritis of right hip Acute
--- NOTE | 2018-06-30 10:04 | PDMN ---
Medical Necessity Medical necessity: [facility] M180 UGIB, A-2 days: 83 yo w/ melena, weakness and lethargy. Eval reveals GIB w/ tachycardia 130, anemia H/H 7.5/22.9. GI consult , urgent EGD performed showing Jennifer Yi tear, PRBC transfused, IVF, serial H/H, cont tele monitoring. Admit IP status to ICU for close monitoring post EGD. Pt remains tachy. Meets [facility] IP criteria for UGIB w/ sig active comorbid disease (see hx below), and anemia w/ tachycardia. Hx systolic CHF on chronic O2, DMII, HTN, CAD and peptic ulcer disease
[2018-06-30] MEDS: NS 1,000 ML IV SCH ×2 (10:21→23:26)
--- NOTE | 2018-06-30 10:56 | ASMTCMCOM ---
CM Note CM Note Notes: Patient admitted with melena, fatigue, and general malaise x 3 days. Dx includes UGIB and MW tear. He is normally independent, lives in [place] w his . Dr Madison Arzola is PCP. PT/OT ordered. Case Management will follow for d/c planning. Date Signed: 06/30/2018 10:55 AM Electronically Signed By:Xiao Brasher RN
[2018-06-30] MEDS: MIRTAZAPINE 15 MG TAB PO SCH (20:49)
[2018-06-30] MEDS: LORazepam 0.5 MG TAB PO SCH (20:49)
[2018-07-01] MEDS: PANTOPRAZOLE SODIUM 40 MG VIAL IVP SCH (05:20)
[2018-07-01 05:25] LABS: PLATELET COUNT 112 10^3/uL (150-400)
--- NOTE | 2018-07-01 08:44 | SOAPPROG ---
SOAP Progress Note Assessment/Plan: Assessment: Plan: 06/30/18 08:56 upper GI bleed. Dallin is still quite tired and miserable. EGD with MW like tear and blood in stomach. on IV PPI appreciate GI consult CAD with reduced EF, tachy today, will resume part of his CAD med routine and follow HER and BP closely COPD--continue oxygen, check CXR given elevated, but improving WBC anemia--repeat Hgb pending. Transfuse to 9 given COPD/CAD/CHF 07/01/18 08:42 acute blood loss anemia due to PUD and MW type tear. He has require transfusions. Hgb has been stable for 24 hours. Will switch to po protonix. Will advance diet and activty. If stable, hopefully home tomorrow. COPD--continue oxygen CAD with EF, Entresto still held, but carvedilol back to baseline dose of 6.25 mg BID. He typically has BP between 90-110 systolic. DM--stable Subjective: Manuel is feeling a bit better. Still tired and weak, but better. No SOB/CP. Abdominal pain is reduced. He thinks his last BM was still black. Objective: Vital Signs Temp Pulse Resp BP Pulse Ox 37.4 C 95 21 H 116/76 95 06/30/18 19:36 07/01/18 07:51 07/01/18 07:51 07/01/18 07:51 07/01/18 07:51 Laboratory Results 07/01/18 05:16 07/01/18 05:16 06/30/18 07/01/18 07/02/18 05:59 05:59 05:59 Intake Total 1965 Output Total 700 Balance -700 1965 PT 13.9 SEC (12.0-15.0) 06/29/18 15:56 INR 1.11 (0.83-1.16) 06/29/18 15:56 Gen: tired, pleasant Lungs: stable moderately diminished BS, [employer] cough Heart: less tachy, regular Abd + bs soft, reduced TTP LE's no edema Hgb stable range 8.4 WBC improved BMP improved ICD10 Worksheet Patient Problems: Problems Problem Status Onset Upper GI bleed Acute Fusion of lumbar spine Acute Primary localized osteoarthritis of right hip Acute
[2018-07-01] MEDS: INSULIN LISPRO 100 UNIT/ML SC SCH ×3 (08:49→17:30)
[2018-07-01] MEDS: CARVEDILOL 6.25 MG TAB PO SCH ×2 (08:49→17:27)
[2018-07-01] MEDS: PANTOPRAZOLE SODIUM 40 MG TAB PO SCH ×2 (08:49→17:27)
[2018-07-01] MEDS: FINASTERIDE 5 MG TAB PO SCH (08:49)
[2018-07-01] MEDS: MULTIVITAMINS W-MINERALS 1 EACH TAB PO SCH (08:57)
[2018-07-01] MEDS: CHOLECALCIFEROL VIT D3 2,000 UNITS TAB/CAP PO SCH ×3 (08:57→21:54)
--- NOTE | 2018-07-01 09:32 | SOAPPROG ---
SOAP Progress Note Assessment/Plan: Assessment: GI Bleed, MW tear. Stable over night. Hct Stable. Plan: 1. Advance to Regular diet 2. D/C IV Pantoprazole 3.Clinically improved. Anticipate d/c tomorrow from a GI point of view. Will sign off, please call for further questions. 07/01/18 09:33 Subjective: CC: GI Bleed No signs or symptoms of GI bleeding. No abdominal pain. Hct stable. Objective: Vital Signs Temp Pulse Resp BP Pulse Ox 37.1 C 95 21 H 116/76 95 07/01/18 07:51 07/01/18 07:51 07/01/18 07:51 07/01/18 07:51 07/01/18 07:51 Laboratory Results 07/01/18 05:16 07/01/18 05:16 06/30/18 07/01/18 07/02/18 05:59 05:59 05:59 Intake Total 1965 Output Total 700 Balance -700 1965 PT 13.9 SEC (12.0-15.0) 06/29/18 15:56 INR 1.11 (0.83-1.16) 06/29/18 15:56 Generic Name Dose Route Start Last Admin Trade Name Freq PRN Reason Stop Dose Admin Acetaminophen 650 mg 06/29/18 16:36 Tylenol PO 12/26/18 16:35 Q4HRS PRN Pain, Mild/Fever, Can Take PO Albuterol 1 puffs 06/29/18 19:47 Proventil Inhaler IH 12/26/18 19:46 Q6 PRN DYSPNEA Carvedilol 6.25 mg 07/01/18 05:18 07/01/18 08:49 Coreg PO 12/27/18 07:59 6.25 mg BIDMEAL KRISTEL Administration Cholecalciferol 2,000 units 07/01/18 09:00 07/01/18 08:57 Vitamin D PO 12/28/18 08:59 2,000 units TID KRISTEL Administration Dextrose 25 gm 06/29/18 16:51 Dextrose 50% Syringe IVP 12/26/18 16:50 PRN PRN Hypoglycemia Finasteride 5 mg 07/01/18 09:00 07/01/18 08:49 Proscar PO 12/28/18 08:59 5 mg EVERY OTHER DAY KRISTEL Administration Sodium Chloride 1,000 mls @ 75 mls/hr 06/30/18 09:15 06/30/18 23:26 Ns IV 12/27/18 09:14 1,000 mls CONT KRISTEL Administration Insulin Human Lispro 0 unit 06/29/18 18:00 07/01/18 08:49 Humalog Lispro SC 12/26/18 17:59 2 units TIDMEAL KRISTEL Administration Protocol Lorazepam 0.5 mg 06/30/18 21:00 06/30/18 20:49 Ativan PO 12/27/18 20:59 0.5 mg HS KRISTEL Administration Mirtazapine 7.5 mg 06/30/18 21:00 06/30/18 20:49 Remeron PO 12/27/18 20:59 7.5 mg HS KRISTEL Administration Multivitamins/Minerals 1 each 07/01/18 09:00 07/01/18 08:57 Thera M Plus Tablet PO 12/28/18 08:59 1 each DAILY KRISTEL Administration Ondansetron HCl 4 mg 06/29/18 16:36 Zofran IVP 12/26/18 16:35 Q4HRS PRN Nausea/Vomiting, Can't Take PO Ondansetron HCl 4 mg 06/29/18 16:36 Zofran Odt PO 12/26/18 16:35 Q4HRS PRN Nausea/Vomiting, Use 1st Pantoprazole Sodium 40 mg 07/01/18 08:15 07/01/18 08:49 Protonix PO 12/28/18 08:14 40 mg BIDAC KRISTEL Administration Discontinued Medications Generic Name Dose Route Start Last Admin Trade Name Freq PRN Reason Stop Dose Admin Carvedilol 6.25 mg 06/30/18 08:00 06/30/18 09:34 Coreg PO 12/27/18 07:59 Not Given BIDMEAL KRISTEL Carvedilol 3.125 mg 06/30/18 09:00 06/30/18 18:14 Coreg PO 12/27/18 07:59 3.125 mg BIDMEAL KRISTEL Administration Fentanyl 25 - 100 mcg 06/29/18 18:54 Sublimaze IVP 06/29/18 19:55 Q5M PRN PACU, IMMEDIATE Pain control Hydromorphone HCl 0.5 mg 06/29/18 15:57 06/29/18 16:13 Dilaudid IVP 06/29/18 15:58 0.5 mg EDNOW ONE Administration Sodium Chloride 1,000 mls @ 0 mls/hr 06/29/18 15:57 06/29/18 16:12 Ns IV 06/29/18 15:58 1,000 mls EDNOW ONE Administration Protocol Wide Open Lactated Ringer's 1,000 mls @ 0 mls/hr 06/29/18 17:31 06/29/18 17:49 Lr IV 06/29/18 17:32 1,000 mls ONCE ONE Administration As Directed Iopamidol Confirm 06/29/18 16:29 Isovue-300 Administered 06/29/18 16:30 Dose 100 ml .ROUTE .STK-MED ONE Naloxone HCl 0.1 mg 06/29/18 18:54 Narcan IVP 06/29/18 19:55 Q2M PRN PACU Resp Rate <10/min Ondansetron HCl 4 mg 06/29/18 15:57 06/29/18 16:13 Zofran IVP 06/29/18 15:58 4 mg EDNOW ONE Administration Ondansetron HCl 2 - 4 mg 06/29/18 18:54 Zofran IVP 06/29/18 19:55 Q10M PRN PACU, Nausea/Vomiting Pantoprazole Sodium 80 mg 06/29/18 15:57 06/29/18 16:13 Protonix IVP 06/29/18 15:58 80 mg EDNOW ONE Administration Pantoprazole Sodium 40 mg 06/30/18 09:00 Protonix IVP 12/27/18 08:59 BID KRISTEL Pantoprazole Sodium 40 mg 06/29/18 23:00 07/01/18 05:20 Protonix IVP 12/26/18 22:59 40 mg Q6H KRISTEL Administration Pantoprazole Sodium 40 mg 07/01/18 17:30 Protonix PO 12/28/18 17:29 BIDAC KRISTEL Phenylephrine HCl Confirm 06/29/18 18:46 Neosynephrine Administered 06/29/18 18:47 Dose 1,000 mcg .ROUTE .STK-MED ONE Propofol Confirm 06/29/18 17:47 Diprivan Administered 06/29/18 17:48 Dose 200 mg .ROUTE .STK-MED ONE Propofol Confirm 04/03/19 18:35 Diprivan Administered 06/29/18 18:36 Dose 200 mg .ROUTE .STK-MED ONE Rocuronium [place] Confirm 06/29/18 18:20 Zemuron Administered 06/29/18 18:21 Dose 50 mg .ROUTE .STK-MED ONE Succinylcholine Chloride Confirm 06/29/18 18:21 Quelicin Administered 06/29/18 18:22 Dose 200 mg IVP .STK-MED ONE Sufentanil Citrate Confirm 06/29/18 18:14 Sufenta Administered 06/29/18 18:15 Dose 50 mcg .ROUTE .STK-MED ONE Physical Exam - Physical Exam General Appearance: no apparent distress Respiratory: lungs clear Cardiac/Chest: tachycardia (90 - 105 ) Abdomen: non-tender, soft Skin: normal color, warm/dry ICD10 Worksheet Patient Problems: Problems Problem Status Onset Upper GI bleed Acute Fusion of lumbar spine Acute Primary localized osteoarthritis of right hip Acute
[2018-07-01] MEDS: NS 1,000 ML IV SCH (10:56)
[2018-07-01] MEDS ORDERED: PANTOPRAZOLE SODIUM 40 MG TAB PO SCH (17:30)
[2018-07-01] MEDS: LORazepam 0.5 MG TAB PO SCH (21:53)
[2018-07-01] MEDS: MIRTAZAPINE 15 MG TAB PO SCH (21:53)
[2018-07-02 06:02] LABS: PLATELET COUNT 116 10^3/uL (150-400)
[2018-07-02] MEDS: CHOLECALCIFEROL VIT D3 2,000 UNITS TAB/CAP PO SCH ×3 (08:48→22:00)
[2018-07-02] MEDS: CARVEDILOL 6.25 MG TAB PO SCH ×2 (08:48→17:29)
[2018-07-02] MEDS: PANTOPRAZOLE SODIUM 40 MG TAB PO SCH ×2 (08:49→16:03)
[2018-07-02] MEDS: MULTIVITAMINS W-MINERALS 1 EACH TAB PO SCH (08:49)
[2018-07-02] MEDS: INSULIN LISPRO 100 UNIT/ML SC SCH ×3 (08:50→16:03)
--- NOTE | 2018-07-02 09:15 | SOAPPROG ---
SOAP Progress Note Assessment/Plan: Assessment: 83 yo male w/ MW tear/upper GIB- -unfortunately h/h went down a bit and he pulled out his IV and 13 attempts made but no success, [employer] in room now trying to get access, if unable will have to place PICC line. Is s/p 2 u PRBC's, currently borderline hg 8.0 w/ h/o cad and tachy and labored respirations - monitor closely, if h/h drops further may need an additional unit. Will recheck h/h later this afternoon. -COPD - cont oxygen sats goal low 90's -cad w/ ef - back on carvedilol w borderline low bp, will not restart entresto yet. -DM - fsbs ok -dispo - due to decreased h/h would like to monitor additional day, recheck h/h this afternoon and tomorrow am, hopefully if stable will d/c home tomorrow. Plan: 07/02/18 09:10 Subjective: Doing ok, frustrated w/ IV attempts, hungry Objective: Vital Signs Temp Pulse Resp BP Pulse Ox 37.2 C 103 H 26 H 102/63 99 07/02/18 07:13 07/02/18 08:48 07/02/18 07:13 07/02/18 08:48 07/02/18 07:13 Laboratory Results 07/02/18 05:55 07/01/18 05:16 07/01/18 07/02/18 07/03/18 05:59 05:59 05:59 Intake Total 1965 1635 Output Total 650 Balance 1965 985 PT 13.9 SEC (12.0-15.0) 06/29/18 15:56 INR 1.11 (0.83-1.16) 06/29/18 15:56 Gen: doing ok, still w/ some abd'l discomfort, had black stool yesterday Heent: eomi, wearing nasal cannula Neck: soft/supple Chest: decreased bs but clear CV: tachy rr Abd: mildly ttp diffusely, +BS Ext: no edema, wearing PAS ICD10 Worksheet Patient Problems: Problems Problem Status Onset Primary localized osteoarthritis of right hip Acute Fusion of lumbar spine Acute Upper GI bleed Acute
[2018-07-02] MEDS: LORazepam 0.5 MG TAB PO SCH (22:00)
[2018-07-02] MEDS: MIRTAZAPINE 15 MG TAB PO SCH (22:00)
[2018-07-03] MEDS: PANTOPRAZOLE SODIUM 40 MG TAB PO SCH ×2 (07:30→17:02)
[2018-07-03] MEDS: INSULIN LISPRO 100 UNIT/ML SC SCH ×3 (09:53→17:07)
[2018-07-03] MEDS: CHOLECALCIFEROL VIT D3 2,000 UNITS TAB/CAP PO SCH ×3 (09:56→20:37)
[2018-07-03] MEDS: FINASTERIDE 5 MG TAB PO SCH (09:56)
[2018-07-03] MEDS: CARVEDILOL 6.25 MG TAB PO SCH ×2 (09:56→17:02)
[2018-07-03] MEDS: MULTIVITAMINS W-MINERALS 1 EACH TAB PO SCH (09:56)
--- NOTE | 2018-07-03 11:18 | SOAPPROG ---
SOAP Progress Note Assessment/Plan: Assessment: Anemia due to upper GI bleed. although the endoscopy revealed MW tear, he gives no history of vomiting prior to the melana. I am concerned aout this being relatd to acid peptic disease. Plan: Transfuse. Continue PPI. 07/03/18 11:17 Subjective: Feeling OK. Some tightness with breathing. Stools are now brown. Objective: Vital Signs Temp Pulse Resp BP Pulse Ox 98.8 F 97 18 109/66 100 07/03/18 08:00 07/03/18 09:56 07/03/18 04:00 07/03/18 09:56 07/03/18 08:00 Laboratory Results 07/03/18 06:15 07/01/18 05:16 07/02/18 07/03/18 07/04/18 05:59 05:59 05:59 Intake Total 1635 920 480 Output Total 650 300 Balance 985 620 480 PT 13.9 SEC (12.0-15.0) 06/29/18 15:56 INR 1.11 (0.83-1.16) 06/29/18 15:56 COR RRR. Lungs clear. HGB too low considering his overall condition. ICD10 Worksheet Patient Problems: Problems Problem Status Onset Upper GI bleed Acute Fusion of lumbar spine Acute Primary localized osteoarthritis of right hip Acute
[2018-07-03] MEDS: MIRTAZAPINE 15 MG TAB PO SCH (20:37)
[2018-07-03] MEDS: LORazepam 0.5 MG TAB PO SCH (20:37)
[2018-07-04] MEDS: PANTOPRAZOLE SODIUM 40 MG TAB PO SCH (07:44)
[2018-07-04] MEDS: CHOLECALCIFEROL VIT D3 2,000 UNITS TAB/CAP PO SCH (08:45)
[2018-07-04] MEDS: CARVEDILOL 6.25 MG TAB PO SCH (08:45)
--- NOTE | 2018-07-04 09:28 | SOAPPROG ---
SOAP Progress Note Assessment/Plan: Assessment: 83 yo male admitted with anemia due to upper GI bleed. EGD revealed MW tear. Plan: Anemia - hgb 9.4 after yesterday's transfusion. Pt refusing any further blood draws today. Denies dizziness, lightheadedness, BP stable. Will d/c on iron and plan to f/u at end of the week in the office for recheck of h/h. Upper GI bleed - BM yesterday was light brown, d/c on PPI Dispo- D/c home today with f/u in the office towards the end of the week 07/04/18 09:30 Subjective: Manuel is resting in bed this morning. He says he has been feeling fine when getting up to go to the bathroom - no dizziness or lightheadedness. Appetite fine. Eager to go home. Refusing blood draws. Bowel movement yesterday was light brown. Objective: Vital Signs Temp Pulse Resp BP Pulse Ox 37.3 C 98 20 112/73 96 07/04/18 08:47 07/04/18 08:47 07/04/18 08:47 07/04/18 08:47 07/04/18 08:47 Laboratory Results 07/03/18 17:10 07/01/18 05:16 07/03/18 07/04/18 07/05/18 05:59 05:59 05:59 Intake Total 920 1890 Output Total 300 Balance 620 1890 PT 13.9 SEC (12.0-15.0) 06/29/18 15:56 INR 1.11 (0.83-1.16) 06/29/18 15:56 Gen- alert, oriented, vitals stable Head- normocephalic, atraumatic CV- S1S2, RRR, no murmurs, rubs, gallops Resp- LCTAB, no wheezing, rhonchi, rales Abd- SNT, non distended, + BS Skin - warm and dry ICD10 Worksheet Patient Problems: Problems Problem Status Onset Upper GI bleed Acute Fusion of lumbar spine Acute Primary localized osteoarthritis of right hip Acute
--- NOTE | 2018-07-04 09:35 | PDIAF ---
- Diagnosis Diagnosis: Anemia due to upper GI bleed Code Status: Do Not Resuscitate - Medication Management Discharge Medications: electronically signed and located in the Home Medication List. - Orders Isolation Type: None Diet Recommendation: no restrictions on diet Diet Texture: Regular Texture Diet - Follow Up Care Current Providers and Referrals: Patient,NotPresent [Unknown] - As per Instructions
--- NOTE | 2018-07-04 10:30 | ASMTCMCOM ---
CM Note CM Note Notes: Pts chart reviewed. PT has cleared pt to d/c home without any needs. CM available for changes. Plan: Independent Date Signed: 07/04/2018 09:17 AM Electronically Signed By:DEBORAH Aaron
[2018-07-04 11:08] VITALS: BP 114/70
[2018-07-04] MEDS: INSULIN LISPRO 100 UNIT/ML SC SCH (11:08)
[2018-07-04] MEDS: MULTIVITAMINS W-MINERALS 1 EACH TAB PO SCH (12:30)
--- NOTE | 2018-07-04 16:23 | GDS ---
[f rep st] DISCHARGE SUMMARY PRIMARY DIAGNOSIS: Upper gastrointestinal bleed. HISTORY OF PRESENT ILLNESS: Manuel is an 83-year-old male who was admitted through the emergency dep artment for lethargy and weakness along with melena. The patient did not have any accompanying chest pain, palpitations, shortness of breath, diarrhea, fevers or chills, but he did have abdominal tende rness. His initial hemoglobin and hematocrit were low at 7.5 and 2.9, respectively. He was admitted for anemia related to a GI bleed. Endoscopy revealed a Jennifer-Yi tear, though interestingly the patient had not been vomiting prior to admission. He was started on pantoprazole 40 mg twice daily for concern for acid reflux, which possibly contributed to his bleed. Throughout the patient's stay in the hospital, he was given a couple of packed red blood cell transfusions and following his final transfusion last evening his hemoglobin and hematocrit were 9.1 and 27.3. The hemoglobin and hematoc rit last night were 9.4 and 29.0. The patient refused any further blood draws this morning, so we we re unable to obtain a final hemoglobin and hematocrit prior to discharge, but the patient will plan t o follow up with his primary care provider at the end of the week for a recheck. On discharge, the p atnasir had had normal bowel movements without any blood present and reported that they were light bro wn in color. He had again not had any episodes of vomiting. The patient will be discharged on a hig h-dose PPI with close followup as an outpatient. DISCHARGE MEDICATIONS: Multivitamin 1 tablet p.o. daily, vitamin D3 2000 units p.o. t.i.d., vitamin C 500 mg p.o. b.i.d., [place]-3 fish oils 1000 mg p.o. b.i.d., colestipol 1 g p.o. q.i.d., Zocor 40 mg p.o. daily, Voltaren 1 application daily p.r.n., [place] 5/325 one tablet p.o. q.i.d. p.r.n., Proscar 5 mg p.o. every other day, quinine sulfate 300 mg p.o. at bedtime, vitamin B complex 1 tablet p.o. brenton ly, Lidoderm 5% patch 1 tablet transdermally daily, Ativan 0.5 mg p.o. at bedtime, Coreg 6.25 mg p.o. b.i.d., albuterol 1 puff inhaled q.6 hours p.r.n. dyspnea, [place] 1 spray each naris p.r.n. dry nose, furosemide 20 mg p.o. daily, Entresto 49 mg/51 mg 1 tablet p.o. b.i.d., timolol 0.5% ophthalmi c drops 1 drop each eye daily, Remeron 7.5 mg p.o. at bedtime, Robaxin 750 mg p.o. q.i.d., Neurontin 300 mg p.o. t.i.d., Prolia 60 mg subcu every 180 days, omeprazole 40 mg p.o. daily. /[id number]/MODL
== END 2018-07-04 12:47 | disposition home or self-care (01) | DRG 369 ==
LOC: EDUNIT# → F2N 19:10 → F2W 07-03 17:28
PROVIDERS: ADMIT Internal Medicine; ATTEND Internal Medicine
PROC: 30233N1 Transfusion of Nonautologous Red Blood Cells into Peripheral Vein, Percutaneous Approach (ICD-10-PCS; 2018-06-29)
PROC: 3E0G8GC Introduction of Other Therapeutic Substance into Upper GI, Via Natural or Artificial Opening Endoscopic (ICD-10-PCS; principal; 2018-06-29 17:14)
PROC: 0W3P8ZZ Control Bleeding in Gastrointestinal Tract, Via Natural or Artificial Opening Endoscopic (ICD-10-PCS; principal; 2018-06-29 17:14)
DX: K22.6 Gastro-esophageal laceration-hemorrhage syndrome (principal); D62 Acute posthemorrhagic anemia; I11.0 Hypertensive heart disease with heart failure; I50.22 Chronic systolic (congestive) heart failure; E86.9 Volume depletion, unspecified; K21.9 Gastro-esophageal reflux disease without esophagitis; E11.9 Type 2 diabetes mellitus without complications; I25.10 Atherosclerotic heart disease of native coronary artery without angina pectoris; E78.5 Hyperlipidemia, unspecified; J44.9 Chronic obstructive pulmonary disease, unspecified; Z66 Do not resuscitate; Z87.891 Personal history of nicotine dependence; Z96.649 Presence of unspecified artificial hip joint; Z96.659 Presence of unspecified artificial knee joint
CPT/HCPCS: 82435-PO; 82565-PO; 82947-PO; 84132-PO; 84295-PO; 84520-PO; 85014-ER; 96374; 97161-GP; 97165-GO; 97535-GO; J0330; J1170; J1815; J2370; J2405; J2704; P9016; Q9967